=== PATIENT | female | born 1960 | race Caucasian/White ===

== ENCOUNTER 2023-11-08 08:53 | Observation (INO) | payer OTHER ==
--- OUTSIDE RECORDS SUMMARY | 2023-11-08 08:58 | XMS REPORT | Continuity of Care Document ---
Author Name Unknown Address [address] [facility] [address] [place] [address] [facility] Address [address] [facility] [address] [place] [address] Care Team Providers Care Medical Field Representative Name Role Phone Lebron Crenshaw MD Primary Care Physician CAROLINA OLIVARES Attending Clinician LEBRON Santana Attending Clinician Lebron Ramirez MD Attending Clinician [phone] DOMINIQUE ZALDIVAR Attending Clinician Unavailable DOMINIQUE ZALDIVAR Attending Clinician Unavailable Dominique Zaldivar DO Attending Clinician IGNACIA JOHN Attending Clinician Unavailable YUMIKO GOODRICH Attending Clinician Unavailable Doctor Unassigned, Jarales Attending Clinician U KEVIN Hogan Attending Clinician Unavailable JERSON PEACOCK Attending Clinician Unavaila CAROLINA Zuniga Admitting Clinician UnavailLEBRON Gauthier Admitting Clinician Lilly bellamy Payers Payer Name Policy Type Policy Number Effective Date Expirati on Date Source [facility] DUAL COMPLETE HMO [id number] 2019 00:00:00 [facility] [id number] 00:00:00 [facility] DUAL COMPLETE CHOICE [id number] 2017 00:00:00 Problems Condition Name Condition Details Condition Category Status Onset Date Resolution Date Last Treatment Date Treating Clinician Comments Source 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 Added automatic ally from request for surgery [id number] [facility] Mucous cyst of finger Mucous cyst of finger Disease Active 1-16 00:00: 00 Overview: Formattin g of this note might be different from the original. 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 bilateral arms [facility] Allergies, Adverse Reactions, Alerts Allergy Name Allergy Type Status Severity Reaction(s) Onset Date Inactive Date Treating Clinician Comments Source Penicill in Propensi ty to adverse reaction s Active Hives 2015-10 00:00: 00 [facility] PENICILL IN DRUG INGREDI Active Hives 2015-10 0 00:00: 00 [facility] Social History Social Habit Start Date Stop Date Quantity Comments Source Exposure to SARS-CoV-2 (event) Not sure [facility] Gender [facility] use and exposure 2023-06-05 00:00:00 2023-06-05 00:00:00 Smokeless tobacco non-user [facility] Alcohol intake 2023-06-05 00:00:00 2023-06-05 00:00:00 0 /d [facility] History of Social function 2023-05-25 00:00:00 2023-05-25 00:00:00 [facility] History of tobacco use 2011-09-09 00:00:00 Cigarette Smoker [facility] Sex Assigned At 1960 00:00:00 1960 00:00:00 [facility] Smoking Status Start Date Stop Date Source Ex-smoker 2023-06-05 00:00:00 [facility]23[facility] Ordered Medication Name Filled Medication Name Start Date Stop Date Current Medication? Ordering Clinician Indication Dosage Frequency Signature (SIG) Comments Components Source albuterol 90 mcg/actuati on inhaler 06-05 00:00: 00 Yes [id number] 2{puff} Inhale 2 Puffs every 6 (six) hours as needed for Wheezing or Shortness of Breath. [facility] albuterol-i pratropium (COMBIVENT RESPIMAT) 20-100 mcg/actuati on inhaler 06-05 00:00: 00 Yes [id number] 1{puff} Inhale 1 Puff every 6 (six) hours as needed for Wheezing or Shortness of Breath. [facility] budesonide- formoteroL (SYMBICORT) 160-4.5 mcg/actuati on inhaler 06-05 00:00: 00 Yes [id number] 2{puff} Inhale 2 Puffs in the morning and 2 Puffs in the evening. INHALE TWO PUFFS BY MOUTH TWICE A DAY [facility] albuterol 90 mcg/actuati on inhaler 06-05 00:00: 00 Yes [id number] 2{puff} Inhale 2 Puffs every 6 (six) hours as needed for Wheezing or Shortness of Breath. [facility] albuterol-i pratropium (COMBIVENT RESPIMAT) 20-100 mcg/actuati on inhaler 06-05 00:00: 00 Yes [id number] 1{puff} Inhale 1 Puff every 6 (six) hours as needed for Wheezing or Shortness of Breath. [facility] budesonide- formoteroL (SYMBICORT) 160-4.5 mcg/actuati on inhaler 8 00:00: 00 Yes [id number] 2{puff} Inhale 2 Puffs in the morning and 2 Puffs in the evening. INHALE TWO PUFFS BY MOUTH TWICE A DAY [facility] albuterol 90 mcg/actuati on inhaler 06-05 00:00: 00 Yes [id number] 2{puff} Inhale 2 Puffs every 6 (six) hours as needed for Wheezing or Shortness of Breath. [facility] albuterol-i pratropium (COMBIVENT RESPIMAT) 20-100 mcg/actuati on inhaler 06-05 00:00: 00 Yes [id number] 1{puff} Inhale 1 Puff every 6 (six) hours as needed for Wheezing or Shortness of Breath. [facility] budesonide- formoteroL (SYMBICORT) 160-4.5 mcg/actuati on inhaler 06-05 00:00: 00 Yes [id number] 2{puff} Inhale 2 Puffs in the morning and 2 Puffs in the evening. INHALE TWO PUFFS BY MOUTH TWICE A DAY [facility] albuterol 90 mcg/actuati on inhaler 06-05 00:00: 00 Yes [id number] 2{puff} Inhale 2 Puffs every 6 (six) hours as needed for Wheezing or Shortness of Breath. [facility] albuterol-i pratropium (COMBIVENT RESPIMAT) 20-100 mcg/actuati on inhaler 06-05 00:00: 00 Yes [id number] 1{puff} Inhale 1 Puff every 6 (six) hours as needed for Wheezing or Shortness of Breath. [facility] budesonide- formoteroL (SYMBICORT) 160-4.5 mcg/actuati on inhaler 06-05 00:00: 00 Yes [id number] 2{puff} Inhale 2 Puffs in the morning and 2 Puffs in the evening. INHALE TWO PUFFS BY MOUTH TWICE A DAY [facility] albuterol 90 mcg/actuati on inhaler 06-05 00:00: 00 Yes [id number] 2{puff} Inhale 2 Puffs every 6 (six) hours as needed for Wheezing or Shortness of Breath. [facility] albuterol-i pratropium (COMBIVENT RESPIMAT) 20-100 mcg/actuati on inhaler 06-05 00:00: 00 Yes [id number] 1{puff} Inhale 1 Puff every 6 (six) hours as needed for Wheezing or Shortness of Breath. [facility] budesonide- formoteroL (SYMBICORT) 160-4.5 mcg/actuati on inhaler 06-05 00:00: 00 Yes [id number] 2{puff} Inhale 2 Puffs in the morning and 2 Puffs in the evening. INHALE TWO PUFFS BY MOUTH TWICE A DAY [facility] vitamin B-12 (VITAMIN B-12) 1,000 mcg tablet 05-25 10:12: 41 Yes 1000ug Take 1 tablet by mouth in the morning. [facility] vitamin B-12 (VITAMIN B-12) 1,000 mcg tablet 05-25 10:12: 41 Yes 1000ug Take 1 tablet by mouth in the morning. [facility] vitamin B-12 (VITAMIN B-12) 1,000 mcg tablet 05-25 10:12: 41 Yes 1000ug Take 1 tablet by mouth in the morning. [facility] vitamin B-12 (VITAMIN B-12) 1,000 mcg tablet 05-25 10:12: 41 Yes 1000ug Take 1 tablet by mouth in the morning. [facility] vitamin B-12 (VITAMIN B-12) 1,000 mcg tablet 05-25 10:12: 41 Yes 1000ug Take 1 tablet by mouth in the morning. [facility] vitamin B-12 (VITAMIN B-12) 1,000 mcg tablet 05-25 10:12: 41 Yes 1000ug Take 1 tablet by mouth in the morning. [facility] vitamin B-12 (VITAMIN B-12) 1,000 mcg tablet 05-25 10:12: 41 Yes 1000ug Take 1 tablet by mouth in the morning. [facility] albuterol 90 mcg/actuati on inhaler 05-25 00:00: 00 Yes [id number] 2{puff} Inhale 2 Puffs every 6 (six) hours as needed for Wheezing or Shortness of Breath. [facility] albuterol-i pratropium (COMBIVENT RESPIMAT) 20-100 mcg/actuati on inhaler 05-25 00:00: 00 Yes [id number] 1{puff} Inhale 1 Puff every 6 (six) hours. [facility] atorvastati n 80 mg tablet 05-25 00:00: 00 Yes [id number] 80mg Take 1 tablet by mouth in the morning. [facility] budesonide- formoteroL (SYMBICORT) 160-4.5 mcg/actuati on inhaler 05-25 00:00: 00 Yes [id number] INHALE TWO PUFFS BY MOUTH TWICE A DAY [facility] DULoxetine 60 mg capsule 05-25 00:00: 00 Yes [id number] TAKE ONE CAPSULE BY MOUTH EVERY DAY. [facility] gabapentin 300 mg capsule 05-25 00:00: 00 Yes [id number] TAKE 1 CAPSULE BY MOUTH 3 TIMES DAILY [facility] lisinopriL- hydrochloro thiazide 20-12.5 mg per tablet 05-25 00:00: 00 Yes [id number] 1{tbl} Take 1 tablet by mouth in the morning. [facility] omeprazole 20 mg capsule 05-25 00:00: 00 Yes [id number] 20mg Take 1 capsule by mouth in the morning. [facility] oxyBUTYnin chloride 5 mg tablet 05-25 00:00: 00 Yes [id number] 5mg Take 1 tablet by mouth in the morning and 1 tablet in the evening. [facility] traZODone 150 mg tablet 05-25 00:00: 00 Yes [id number] TAKE ONE-HALF TABLET BY MOUTH AT BEDTIME [facility] albuterol 90 mcg/actuati on inhaler 05-25 00:00: 00 Yes [id number] 2{puff} Inhale 2 Puffs every 6 (six) hours as needed for Wheezing or Shortness of Breath. [facility] albuterol-i pratropium (COMBIVENT RESPIMAT) 20-100 mcg/actuati on inhaler 05-25 00:00: 00 Yes [id number] 1{puff} Inhale 1 Puff every 6 (six) hours. [facility] atorvastati n 80 mg tablet 05-25 00:00: 00 Yes [id number] 80mg Take 1 tablet by mouth in the morning. [facility] budesonide- formoteroL (SYMBICORT) 160-4.5 mcg/actuati on inhaler 05-25 00:00: 00 Yes [id number] INHALE TWO PUFFS BY MOUTH TWICE A DAY [facility] DULoxetine 60 mg capsule 05-25 00:00: 00 Yes [id number] TAKE ONE CAPSULE BY MOUTH EVERY DAY. [facility] gabapentin 300 mg capsule 05-25 00:00: 00 Yes [id number] TAKE 1 CAPSULE BY MOUTH 3 TIMES DAILY [facility] lisinopriL- hydrochloro thiazide 20-12.5 mg per tablet 05-25 00:00: 00 Yes [id number] 1{tbl} Take 1 tablet by mouth in the morning. [facility] omeprazole 20 mg capsule 05-25 00:00: 00 Yes [id number] 20mg Take 1 capsule by mouth in the morning. [facility] oxyBUTYnin chloride 5 mg tablet 05-25 00:00: 00 Yes [id number] 5mg Take 1 tablet by mouth in the morning and 1 tablet in the evening. [facility] traZODone 150 mg tablet 05-25 00:00: 00 Yes [id number] TAKE ONE-HALF TABLET BY MOUTH AT BEDTIME [facility] atorvastati n 80 mg tablet 05-25 00:00: 00 Yes [id number] 80mg Take 1 tablet by mouth in the morning. [facility] DULoxetine 60 mg capsule 05-25 00:00: 00 Yes [id number] TAKE ONE CAPSULE BY MOUTH EVERY DAY. [facility] gabapentin 300 mg capsule 05-25 00:00: 00 Yes [id number] TAKE 1 CAPSULE BY MOUTH 3 TIMES DAILY [facility] lisinopriL- hydrochloro thiazide 20-12.5 mg per tablet 05-25 00:00: 00 Yes [id number] 1{tbl} Take 1 tablet by mouth in the morning. [facility] omeprazole 20 mg capsule 05-25 00:00: 00 Yes [id number] 20mg Take 1 capsule by mouth in the morning. [facility] oxyBUTYnin chloride 5 mg tablet 05-25 00:00: 00 Yes [id number] 5mg Take 1 tablet by mouth in the morning and 1 tablet in the evening. [facility] traZODone 150 mg tablet 05-25 00:00: 00 Yes [id number] TAKE ONE-HALF TABLET BY MOUTH AT BEDTIME [facility] atorvastati n 80 mg tablet 05-25 00:00: 00 Yes [id number] 80mg Take 1 tablet by mouth in the morning. [facility] DULoxetine 60 mg capsule 05-25 00:00: 00 Yes [id number] TAKE ONE CAPSULE BY MOUTH EVERY DAY. [facility] gabapentin 300 mg capsule 05-25 00:00: 00 Yes [id number] TAKE 1 CAPSULE BY MOUTH 3 TIMES DAILY [facility] lisinopriL- hydrochloro thiazide 20-12.5 mg per tablet 05-25 00:00: 00 Yes [id number] 1{tbl} Take 1 tablet by mouth in the morning. [facility] omeprazole 20 mg capsule 05-25 00:00: 00 Yes [id number] 20mg Take 1 capsule by mouth in the morning. [facility] oxyBUTYnin chloride 5 mg tablet 05-25 00:00: 00 Yes [id number] 5mg Take 1 tablet by mouth in the morning and 1 tablet in the evening. [facility] traZODone 150 mg tablet 05-25 00:00: 00 Yes [id number] TAKE ONE-HALF TABLET BY MOUTH AT BEDTIME [facility] atorvastati n 80 mg tablet 05-25 00:00: 00 Yes [id number] 80mg Take 1 tablet by mouth in the morning. [facility] DULoxetine 60 mg capsule 05-25 00:00: 00 Yes [id number] TAKE ONE CAPSULE BY MOUTH EVERY DAY. [facility] gabapentin 300 mg capsule 05-25 00:00: 00 Yes [id number] TAKE 1 CAPSULE BY MOUTH 3 TIMES DAILY [facility] lisinopriL- hydrochloro thiazide 20-12.5 mg per tablet 05-25 00:00: 00 Yes [id number] 1{tbl} Take 1 tablet by mouth in the morning. [facility] omeprazole 20 mg capsule 05-25 00:00: 00 Yes [id number] 20mg Take 1 capsule by mouth in the morning. [facility] oxyBUTYnin chloride 5 mg tablet 05-25 00:00: 00 Yes [id number] 5mg Take 1 tablet by mouth in the morning and 1 tablet in the evening. [facility] traZODone 150 mg tablet 05-25 00:00: 00 Yes [id number] TAKE ONE-HALF TABLET BY MOUTH AT BEDTIME [facility] atorvastati n 80 mg tablet 05-25 00:00: 00 Yes [id number] 80mg Take 1 tablet by mouth in the morning. [facility] DULoxetine 60 mg capsule 05-25 00:00: 00 Yes [id number] TAKE ONE CAPSULE BY MOUTH EVERY DAY. [facility] gabapentin 300 mg capsule 05-25 00:00: 00 Yes [id number] TAKE 1 CAPSULE BY MOUTH 3 TIMES DAILY [facility] lisinopriL- hydrochloro thiazide 20-12.5 mg per tablet 05-25 00:00: 00 Yes [id number] 1{tbl} Take 1 tablet by mouth in the morning. [facility] omeprazole 20 mg capsule 05-25 00:00: 00 Yes [id number] 20mg Take 1 capsule by mouth in the morning. [facility] oxyBUTYnin chloride 5 mg tablet 05-25 00:00: 00 Yes [id number] 5mg Take 1 tablet by mouth in the morning and 1 tablet in the evening. [facility] traZODone 150 mg tablet 05-25 00:00: 00 Yes [id number] TAKE ONE-HALF TABLET BY MOUTH AT BEDTIME [facility] atorvastati n 80 mg tablet 05-25 00:00: 00 Yes [id number] 80mg Take 1 tablet by mouth in the morning. [facility] DULoxetine 60 mg capsule 05-25 00:00: 00 Yes [id number] TAKE ONE CAPSULE BY MOUTH EVERY DAY. [facility] gabapentin 300 mg capsule 05-25 00:00: 00 Yes [id number] TAKE 1 CAPSULE BY MOUTH 3 TIMES DAILY [facility] lisinopriL- hydrochloro thiazide 20-12.5 mg per tablet 05-25 00:00: 00 Yes [id number] 1{tbl} Take 1 tablet by mouth in the morning. [facility] omeprazole 20 mg capsule 05-25 00:00: 00 Yes [id number] 20mg Take 1 capsule by mouth in the morning. [facility] oxyBUTYnin chloride 5 mg tablet 05-25 00:00: 00 Yes [id number] 5mg Take 1 tablet by mouth in the morning and 1 tablet in the evening. [facility] traZODone 150 mg tablet 05-25 00:00: 00 Yes [id number] TAKE ONE-HALF TABLET BY MOUTH AT BEDTIME [facility] albuterol 90 mcg/actuati on inhaler 05-25 00:00: 00 06-05 00:00 :00 No [id number] 2{puff} Inhale 2 Puffs every 6 (six) hours as needed for Wheezing or Shortness of Breath. [facility] albuterol-i pratropium (COMBIVENT RESPIMAT) 20-100 mcg/actuati on inhaler 05-25 00:00: 00 06-05 00:00 :00 No [id number] 1{puff} Inhale 1 Puff every 6 (six) hours. [facility] budesonide- formoteroL (SYMBICORT) 160-4.5 mcg/actuati on inhaler 05-25 00:00: 00 06-05 00:00 :00 No [id number] INHALE TWO PUFFS BY MOUTH TWICE A DAY [facility] albuterol 90 mcg/actuati on inhaler 05-25 00:00: 00 06-05 00:00 :00 No [id number] 2{puff} Inhale 2 Puffs every 6 (six) hours as needed for Wheezing or Shortness of Breath. [facility] albuterol-i pratropium (COMBIVENT RESPIMAT) 20-100 mcg/actuati on inhaler 05-25 00:00: 00 06-05 00:00 :00 No [id number] 1{puff} Inhale 1 Puff every 6 (six) hours. [facility] budesonide- formoteroL (SYMBICORT) 160-4.5 mcg/actuati on inhaler 05-25 00:00: 00 06-05 00:00 :00 No [id number] INHALE TWO PUFFS BY MOUTH TWICE A DAY [facility] albuterol 90 mcg/actuati on inhaler 04-27 00:00: 00 Yes [id number] 2{puff} Inhale 2 Puffs every 6 (six) hours as needed for Wheezing or Shortness of Breath. [facility] budesonide- formoteroL (SYMBICORT) 160-4.5 mcg/actuati on inhaler 04-27 00:00: 00 Yes [id number] INHALE TWO PUFFS BY MOUTH TWICE A DAY [facility] albuterol-i pratropium (COMBIVENT RESPIMAT) 20-100 mcg/actuati on inhaler 04-27 00:00: 00 Yes [id number] 1{puff} Inhale 1 Puff every 6 (six) hours. [facility] albuterol 90 mcg/actuati on inhaler 04-27 00:00: 00 05-25 00:00 :00 No [id number] 2{puff} Inhale 2 Puffs every 6 (six) hours as needed for Wheezing or Shortness of Breath. [facility] budesonide- formoteroL (SYMBICORT) 160-4.5 mcg/actuati on inhaler 04-27 00:00: 00 05-25 00:00 :00 No [id number] INHALE TWO PUFFS BY MOUTH TWICE A DAY [facility] albuterol-i pratropium (COMBIVENT RESPIMAT) 20-100 mcg/actuati on inhaler 04-27 00:00: 00 05-25 00:00 :00 No [id number] 1{puff} Inhale 1 Puff every 6 (six) hours. [facility] albuterol 90 mcg/actuati on inhaler 04-27 00:00: 00 05-25 00:00 :00 No [id number] 2{puff} Inhale 2 Puffs every 6 (six) hours as needed for Wheezing or Shortness of Breath. [facility] budesonide- formoteroL (SYMBICORT) 160-4.5 mcg/actuati on inhaler 04-27 00:00: 00 05-25 00:00 :00 No [id number] INHALE TWO PUFFS BY MOUTH TWICE A DAY [facility] albuterol-i pratropium (COMBIVENT RESPIMAT) 20-100 mcg/actuati on inhaler 04-27 00:00: 00 05-25 00:00 :00 No [id number] 1{puff} Inhale 1 Puff every 6 (six) hours. [facility] atorvastati n 80 mg tablet 0 3-15 00:00: 00 Yes [id number] TAKE ONE TABLET BY MOUTH DAILY [facility] atorvastati n 80 mg tablet 0 15 00:00: 00 Yes [id number] TAKE ONE TABLET BY MOUTH DAILY [facility] atorvastati n 80 mg tablet 0 15 00:00: 00 Yes [id number] TAKE ONE TABLET BY MOUTH DAILY [facility] atorvastati n 80 mg tablet 0 315 00:00: 00 Yes [id number] TAKE ONE TABLET BY MOUTH DAILY [facility] atorvastati n 80 mg tablet 0 -15 00:00: 00 05-25 00:00 :00 No [id number] TAKE ONE TABLET BY MOUTH DAILY [facility] atorvastati n 80 mg tablet 0 15 00:00: 00 05-25 00:00 :00 No [id number] TAKE ONE TABLET BY MOUTH DAILY [facility] LISINOPRIL- HYDROCHLORO THIAZIDE 20-12.5 mg per tablet 0 -10 00:00: 00 Yes [id number] TAKE ONE TABLET BY MOUTH DAILY [facility] LISINOPRIL- HYDROCHLORO THIAZIDE 20-12.5 mg per tablet 0 3-10 00:00: 00 Yes [id number] TAKE ONE TABLET BY MOUTH DAILY [facility] LISINOPRIL- HYDROCHLORO THIAZIDE 20-12.5 mg per tablet 0 3-10 00:00: 00 Yes [id number] TAKE ONE TABLET BY MOUTH DAILY [facility] LISINOPRIL- HYDROCHLORO THIAZIDE 20-12.5 mg per tablet 3-10 00:00: 00 Yes [id number] TAKE ONE TABLET BY MOUTH DAILY [facility] LISINOPRIL- HYDROCHLORO THIAZIDE 20-12.5 mg per tablet 3- 00:00: 00 Yes [id number] TAKE ONE TABLET BY MOUTH DAILY [facility] LISINOPRIL- HYDROCHLORO THIAZIDE 20-12.5 mg per tablet 3-10 00:00: 00 05-25 00:00 :00 No [id number] TAKE ONE TABLET BY MOUTH DAILY [facility] LISINOPRIL- HYDROCHLORO THIAZIDE 20-12.5 mg per tablet - 00:00: 00 05-25 00:00 :00 No [id number] TAKE ONE TABLET BY MOUTH DAILY [facility] albuterol 90 mcg/actuati on inhaler 12-14 00:00: 00 Yes [id number] 2{puff} Inhale 2 Puffs every 6 (six) hours as needed for Wheezing or Shortness of Breath. [facility] budesonide- formoteroL (SYMBICORT) 160-4.5 mcg/actuati on inhaler 12-14 00:00: 00 Yes [id number] INHALE TWO PUFFS BY MOUTH TWICE A DAY [facility] albuterol 90 mcg/actuati on inhaler 12-14 00:00: 00 Yes [id number] 2{puff} Inhale 2 Puffs every 6 (six) hours as needed for Wheezing or Shortness of Breath. [facility] budesonide- formoteroL (SYMBICORT) 160-4.5 mcg/actuati on inhaler 12-14 00:00: 00 Yes [id number] INHALE TWO PUFFS BY MOUTH TWICE A DAY [facility] COMBIVENT RESPIMAT 20-100 mcg/actuati on inhaler 12-14 00:00: 00 Yes [id number] INHALE 1 PUFF(S) INTO LUNGS 4 TIMES DAILY [facility] albuterol 90 mcg/actuati on inhaler 2-15 00:00: 00 Yes [id number] 2{puff} Inhale 2 Puffs every 6 (six) hours as needed for Wheezing or Shortness of Breath. [facility] budesonide- formoteroL (SYMBICORT) 160-4.5 mcg/actuati on inhaler 2-15 00:00: 00 Yes [id number] INHALE TWO PUFFS BY MOUTH TWICE A DAY [facility] albuterol 90 mcg/actuati on inhaler 2-15 00:00: 00 Yes [id number] 2{puff} Inhale 2 Puffs every 6 (six) hours as needed for Wheezing or Shortness of Breath. [facility] budesonide- formoteroL (SYMBICORT) 160-4.5 mcg/actuati on inhaler 2-15 00:00: 00 Yes [id number] INHALE TWO PUFFS BY MOUTH TWICE A DAY [facility] COMBIVENT RESPIMAT 20-100 mcg/actuati on inhaler 2-15 00:00: 00 Yes [id number] INHALE 1 PUFF(S) INTO LUNGS 4 TIMES DAILY [facility] albuterol 90 mcg/actuati on inhaler 2-15 00:00: 00 Yes [id number] 2{puff} Inhale 2 Puffs every 6 (six) hours as needed for Wheezing or Shortness of Breath. [facility] budesonide- formoteroL (SYMBICORT) 160-4.5 mcg/actuati on inhaler 2-15 00:00: 00 Yes [id number] INHALE TWO PUFFS BY MOUTH TWICE A DAY [facility] COMBIVENT RESPIMAT 20-100 mcg/actuati on inhaler 2-15 00:00: 00 Yes [id number] INHALE 1 PUFF(S) INTO LUNGS 4 TIMES DAILY [facility] albuterol 90 mcg/actuati on inhaler 2-15 00:00: 00 Yes [id number] 2{puff} Inhale 2 Puffs every 6 (six) hours as needed for Wheezing or Shortness of Breath. [facility] budesonide- formoteroL (SYMBICORT) 160-4.5 mcg/actuati on inhaler 2- 00:00: 00 Yes [id number] INHALE TWO PUFFS BY MOUTH TWICE A DAY [facility] COMBIVENT RESPIMAT 20-100 mcg/actuati on inhaler 2 00:00: 00 Yes [id number] INHALE 1 PUFF(S) INTO LUNGS 4 TIMES DAILY [facility] albuterol 90 mcg/actuati on inhaler 12-14 00:00: 00 04-27 00:00 :00 No [id number] 2{puff} Inhale 2 Puffs every 6 (six) hours as needed for Wheezing or Shortness of Breath. [facility] budesonide- formoteroL (SYMBICORT) 160-4.5 mcg/actuati on inhaler 12-14 00:00: 00 04-27 00:00 :00 No [id number] INHALE TWO PUFFS BY MOUTH TWICE A DAY [facility] COMBIVENT RESPIMAT 20-100 mcg/actuati on inhaler 12-14 00:00: 00 04-27 00:00 :00 No [id number] INHALE 1 PUFF(S) INTO LUNGS 4 TIMES DAILY [facility] albuterol-i pratropium (COMBIVENT RESPIMAT) 20-100 mcg/actuati on inhaler 2021-10 00:00: 00 Yes [id number] INHALE ONE INHALATION BY MOUTH FOUR TIMES A DAY [facility] budesonide- formoteroL (SYMBICORT) 160-4.5 mcg/actuati on inhaler 2021-10 00:00: 00 Yes [id number] INHALE TWO PUFFS BY MOUTH TWICE A DAY [facility] albuterol-i pratropium (COMBIVENT RESPIMAT) 20-100 mcg/actuati on inhaler 2021-10 00:00: 00 Yes [id number] INHALE ONE INHALATION BY MOUTH FOUR TIMES A DAY [facility] budesonide- formoteroL (SYMBICORT) 160-4.5 mcg/actuati on inhaler 2021-10 00:00: 00 Yes [id number] INHALE TWO PUFFS BY MOUTH TWICE A DAY [facility] albuterol-i pratropium (COMBIVENT RESPIMAT) 20-100 mcg/actuati on inhaler 2021-10 00:00: 00 Yes [id number] INHALE ONE INHALATION BY MOUTH FOUR TIMES A DAY [facility] budesonide- formoteroL (SYMBICORT) 160-4.5 mcg/actuati on inhaler 2021-10 00:00: 00 Yes [id number] INHALE TWO PUFFS BY MOUTH TWICE A DAY [facility] albuterol-i pratropium (COMBIVENT RESPIMAT) 20-100 mcg/actuati on inhaler 2021-10 00:00: 00 Yes [id number] INHALE ONE INHALATION BY MOUTH FOUR TIMES A DAY [facility] budesonide- formoteroL (SYMBICORT) 160-4.5 mcg/actuati on inhaler 2021-10 00:00: 00 12-14 00:00 :00 No [id number] INHALE TWO PUFFS BY MOUTH TWICE A DAY [facility] albuterol-i pratropium (COMBIVENT RESPIMAT) 20-100 mcg/actuati on inhaler 2021-10 00:00: 00 12-14 00:00 :00 No [id number] INHALE ONE INHALATION BY MOUTH FOUR TIMES A DAY [facility] ALBUTEROL 90 mcg/actuati on inhaler 2021-10 00:00: 00 Yes [id number] INHALE TWO PUFFS BY MOUTH EVERY 6 HOURS NEEDED FOR SHORTNESS OF BREATH OR WHEEZING [facility] ALBUTEROL 90 mcg/actuati on inhaler 2021-10 00:00: 00 Yes [id number] INHALE TWO PUFFS BY MOUTH EVERY 6 HOURS NEEDED FOR SHORTNESS OF BREATH OR WHEEZING [facility] ALBUTEROL 90 mcg/actuati on inhaler 2021-10 00:00: 00 Yes [id number] INHALE TWO PUFFS BY MOUTH EVERY 6 HOURS NEEDED FOR SHORTNESS OF BREATH OR WHEEZING [facility] ALBUTEROL 90 mcg/actuati on inhaler 2021-10 00:00: 00 Yes [id number] INHALE TWO PUFFS BY MOUTH EVERY 6 HOURS NEEDED FOR SHORTNESS OF BREATH OR WHEEZING [facility] ALBUTEROL 90 mcg/actuati on inhaler 2021-10 00:00: 00 12-14 00:00 :00 No [id number] INHALE TWO PUFFS BY MOUTH EVERY 6 HOURS NEEDED FOR SHORTNESS OF BREATH OR WHEEZING [facility] atorvastati n 80 mg tablet 2021-10 00:00: 00 Yes [id number] TAKE ONE TABLET BY MOUTH DAILY [facility] atorvastati n 80 mg tablet 2021-10 00:00: 00 Yes [id number] TAKE ONE TABLET BY MOUTH DAILY [facility] atorvastati n 80 mg tablet 2021-10 00:00: 00 Yes [id number] TAKE ONE TABLET BY MOUTH DAILY [facility] atorvastati n 80 mg tablet 2021-10 00:00: 00 Yes [id number] TAKE ONE TABLET BY MOUTH DAILY [facility] atorvastati n 80 mg tablet 2021-10 00:00: 00 Yes [id number] TAKE ONE TABLET BY MOUTH DAILY [facility] atorvastati n 80 mg tablet 2021-10 00:00: 00 Yes [id number] TAKE ONE TABLET BY MOUTH DAILY [facility] atorvastati n 80 mg tablet 2021-10 00:00: 00 Yes [id number] TAKE ONE TABLET BY MOUTH DAILY [facility] atorvastati n 80 mg tablet 2021-10 00:00: 00 Yes [id number] TAKE ONE TABLET BY MOUTH DAILY [facility] atorvastati n 80 mg tablet 2021-10 00:00: 00 Yes [id number] TAKE ONE TABLET BY MOUTH DAILY [facility] atorvastati n 80 mg tablet 2021-10 00:00: 00 01-11 00:00 :00 No [id number] TAKE ONE TABLET BY MOUTH DAILY [facility] traZODone 150 mg tablet 2021-10 00:00: 00 Yes [id number] TAKE ONE-HALF TABLET BY MOUTH AT BEDTIME [facility] oxybutynin chloride 5 mg tablet 2021-10 00:00: 00 Yes [id number] 5mg Take 1 tablet by mouth in the morning and 1 tablet in the evening. [facility] omeprazole 20 mg capsule 2021-10 00:00: 00 Yes [id number] 20mg Take 1 capsule by mouth in the morning. [facility] lisinopriL- hydrochloro thiazide 20-12.5 mg per tablet 2021-10 00:00: 00 Yes [id number] 1{tbl} Take 1 tablet by mouth in the morning. [facility] gabapentin 300 mg capsule 2021-10 00:00: 00 Yes [id number] TAKE 1 CAPSULE BY MOUTH 3 TIMES DAILY [facility] DULoxetine 60 mg capsule 2021-10 00:00: 00 Yes [id number] TAKE ONE CAPSULE BY MOUTH EVERY DAY. [facility] traZODone 150 mg tablet 2021-10 00:00: 00 Yes [id number] TAKE ONE-HALF TABLET BY MOUTH AT BEDTIME [facility] oxybutynin chloride 5 mg tablet 2021-10 00:00: 00 Yes [id number] 5mg Take 1 tablet by mouth in the morning and 1 tablet in the evening. [facility] omeprazole 20 mg capsule 2021-10 00:00: 00 Yes [id number] 20mg Take 1 capsule by mouth in the morning. [facility] lisinopriL- hydrochloro thiazide 20-12.5 mg per tablet 2021-10 00:00: 00 Yes [id number] 1{tbl} Take 1 tablet by mouth in the morning. [facility] gabapentin 300 mg capsule 2021-10 0 00:00: 00 Yes [id number] TAKE 1 CAPSULE BY MOUTH 3 TIMES DAILY [facility] DULoxetine 60 mg capsule 2021-10 00:00: 00 Yes [id number] TAKE ONE CAPSULE BY MOUTH EVERY DAY. [facility] traZODone 150 mg tablet 2021-10 0 00:00: 00 Yes [id number] TAKE ONE-HALF TABLET BY MOUTH AT BEDTIME [facility] oxybutynin chloride 5 mg tablet 2021-10 0 00:00: 00 Yes [id number] 5mg Take 1 tablet by mouth in the morning and 1 tablet in the evening. [facility] omeprazole 20 mg capsule 2021-10 00:00: 00 Yes [id number] 20mg Take 1 capsule by mouth in the morning. [facility] lisinopriL- hydrochloro thiazide 20-12.5 mg per tablet 2021-10 00:00: 00 Yes [id number] 1{tbl} Take 1 tablet by mouth in the morning. [facility] gabapentin 300 mg capsule 2021-10 00:00: 00 Yes [id number] TAKE 1 CAPSULE BY MOUTH 3 TIMES DAILY [facility] DULoxetine 60 mg capsule 2021-10 00:00: 00 Yes [id number] TAKE ONE CAPSULE BY MOUTH EVERY DAY. [facility] traZODone 150 mg tablet 2021-10 00:00: 00 Yes [id number] TAKE ONE-HALF TABLET BY MOUTH AT BEDTIME [facility] oxybutynin chloride 5 mg tablet 2021-10 0 00:00: 00 Yes [id number] 5mg Take 1 tablet by mouth in the morning and 1 tablet in the evening. [facility] omeprazole 20 mg capsule 2021-10 00:00: 00 Yes [id number] 20mg Take 1 capsule by mouth in the morning. [facility] lisinopriL- hydrochloro thiazide 20-12.5 mg per tablet 2021-10 0 00:00: 00 Yes [id number] 1{tbl} Take 1 tablet by mouth in the morning. [facility] gabapentin 300 mg capsule 2021-10 0 00:00: 00 Yes [id number] TAKE 1 CAPSULE BY MOUTH 3 TIMES DAILY [facility] DULoxetine 60 mg capsule 2021-10 00:00: 00 Yes [id number] TAKE ONE CAPSULE BY MOUTH EVERY DAY. [facility] traZODone 150 mg tablet 2021-10 00:00: 00 Yes [id number] TAKE ONE-HALF TABLET BY MOUTH AT BEDTIME [facility] oxybutynin chloride 5 mg tablet 2021-10 00:00: 00 Yes [id number] 5mg Take 1 tablet by mouth in the morning and 1 tablet in the evening. [facility] omeprazole 20 mg capsule 2021-10 00:00: 00 Yes [id number] 20mg Take 1 capsule by mouth in the morning. [facility] lisinopriL- hydrochloro thiazide 20-12.5 mg per tablet 2021-10 00:00: 00 Yes [id number] 1{tbl} Take 1 tablet by mouth in the morning. [facility] gabapentin 300 mg capsule 2021-10 00:00: 00 Yes [id number] TAKE 1 CAPSULE BY MOUTH 3 TIMES DAILY [facility] DULoxetine 60 mg capsule 2021-10 00:00: 00 Yes [id number] TAKE ONE CAPSULE BY MOUTH EVERY DAY. [facility] traZODone 150 mg tablet 2021-10 00:00: 00 Yes [id number] TAKE ONE-HALF TABLET BY MOUTH AT BEDTIME [facility] oxybutynin chloride 5 mg tablet 2021-10 00:00: 00 Yes [id number] 5mg Take 1 tablet by mouth in the morning and 1 tablet in the evening. [facility] omeprazole 20 mg capsule 2021-10 00:00: 00 Yes [id number] 20mg Take 1 capsule by mouth in the morning. [facility] lisinopriL- hydrochloro thiazide 20-12.5 mg per tablet 2021-10 00:00: 00 Yes [id number] 1{tbl} Take 1 tablet by mouth in the morning. [facility] gabapentin 300 mg capsule 2021-10 00:00: 00 Yes [id number] TAKE 1 CAPSULE BY MOUTH 3 TIMES DAILY [facility] DULoxetine 60 mg capsule 2021-10 00:00: 00 Yes [id number] TAKE ONE CAPSULE BY MOUTH EVERY DAY. [facility] traZODone 150 mg tablet 2021-10 00:00: 00 Yes [id number] TAKE ONE-HALF TABLET BY MOUTH AT BEDTIME [facility] oxybutynin chloride 5 mg tablet 2021-10 00:00: 00 Yes [id number] 5mg Take 1 tablet by mouth in the morning and 1 tablet in the evening. [facility] omeprazole 20 mg capsule 2021-10 00:00: 00 Yes [id number] 20mg Take 1 capsule by mouth in the morning. [facility] lisinopriL- hydrochloro thiazide 20-12.5 mg per tablet 2021-10 00:00: 00 Yes [id number] 1{tbl} Take 1 tablet by mouth in the morning. [facility] gabapentin 300 mg capsule 2021-10 00:00: 00 Yes [id number] TAKE 1 CAPSULE BY MOUTH 3 TIMES DAILY [facility] DULoxetine 60 mg capsule 2021-10 00:00: 00 Yes [id number] TAKE ONE CAPSULE BY MOUTH EVERY DAY. [facility] traZODone 150 mg tablet 2021-10 00:00: 00 Yes [id number] TAKE ONE-HALF TABLET BY MOUTH AT BEDTIME [facility] oxybutynin chloride 5 mg tablet 2021-10 00:00: 00 Yes [id number] 5mg Take 1 tablet by mouth in the morning and 1 tablet in the evening. [facility] omeprazole 20 mg capsule 2021-10 00:00: 00 Yes [id number] 20mg Take 1 capsule by mouth in the morning. [facility] lisinopriL- hydrochloro thiazide 20-12.5 mg per tablet 2021-10 00:00: 00 Yes [id number] 1{tbl} Take 1 tablet by mouth in the morning. [facility] gabapentin 300 mg capsule 2021-10 00:00: 00 Yes [id number] TAKE 1 CAPSULE BY MOUTH 3 TIMES DAILY [facility] DULoxetine 60 mg capsule 2021-10 00:00: 00 Yes [id number] TAKE ONE CAPSULE BY MOUTH EVERY DAY. [facility] traZODone 150 mg tablet 2021-10 00:00: 00 Yes [id number] TAKE ONE-HALF TABLET BY MOUTH AT BEDTIME [facility] oxybutynin chloride 5 mg tablet 2021-10 00:00: 00 Yes [id number] 5mg Take 1 tablet by mouth in the morning and 1 tablet in the evening. [facility] omeprazole 20 mg capsule 2021-10 00:00: 00 Yes [id number] 20mg Take 1 capsule by mouth in the morning. [facility] lisinopriL- hydrochloro thiazide 20-12.5 mg per tablet 2021-10 00:00: 00 Yes [id number] 1{tbl} Take 1 tablet by mouth in the morning. [facility] gabapentin 300 mg capsule 2021-10 00:00: 00 Yes [id number] TAKE 1 CAPSULE BY MOUTH 3 TIMES DAILY [facility] DULoxetine 60 mg capsule 2021-10 00:00: 00 Yes [id number] TAKE ONE CAPSULE BY MOUTH EVERY DAY. [facility] traZODone 150 mg tablet 2021-10 00:00: 00 Yes [id number] TAKE ONE-HALF TABLET BY MOUTH AT BEDTIME [facility] oxybutynin chloride 5 mg tablet 2021-10 00:00: 00 Yes [id number] 5mg Take 1 tablet by mouth in the morning and 1 tablet in the evening. [facility] omeprazole 20 mg capsule 2021-10 00:00: 00 Yes [id number] 20mg Take 1 capsule by mouth in the morning. [facility] lisinopriL- hydrochloro thiazide 20-12.5 mg per tablet 2021-10 00:00: 00 Yes [id number] 1{tbl} Take 1 tablet by mouth in the morning. [facility] gabapentin 300 mg capsule 2021-10 00:00: 00 Yes [id number] TAKE 1 CAPSULE BY MOUTH 3 TIMES DAILY [facility] DULoxetine 60 mg capsule 2021-10 00:00: 00 Yes [id number] TAKE ONE CAPSULE BY MOUTH EVERY DAY. [facility] traZODone 150 mg tablet 2021-10 00:00: 00 Yes [id number] TAKE ONE-HALF TABLET BY MOUTH AT BEDTIME [facility] oxybutynin chloride 5 mg tablet 2021-10 00:00: 00 Yes [id number] 5mg Take 1 tablet by mouth in the morning and 1 tablet in the evening. [facility] omeprazole 20 mg capsule 2021-10 00:00: 00 Yes [id number] 20mg Take 1 capsule by mouth in the morning. [facility] lisinopriL- hydrochloro thiazide 20-12.5 mg per tablet 2021-10 00:00: 00 Yes [id number] 1{tbl} Take 1 tablet by mouth in the morning. [facility] gabapentin 300 mg capsule 2021-10 00:00: 00 Yes [id number] TAKE 1 CAPSULE BY MOUTH 3 TIMES DAILY [facility] DULoxetine 60 mg capsule 2021-10 00:00: 00 Yes [id number] TAKE ONE CAPSULE BY MOUTH EVERY DAY. [facility] traZODone 150 mg tablet 2021-10 00:00: 00 Yes [id number] TAKE ONE-HALF TABLET BY MOUTH AT BEDTIME [facility] oxybutynin chloride 5 mg tablet 2021-10 00:00: 00 Yes [id number] 5mg Take 1 tablet by mouth in the morning and 1 tablet in the evening. [facility] omeprazole 20 mg capsule 2021-10 0-13 00:00: 00 Yes [id number] 20mg Take 1 capsule by mouth in the morning. [facility] gabapentin 300 mg capsule 2021-10 0- 00:00: 00 Yes [id number] TAKE 1 CAPSULE BY MOUTH 3 TIMES DAILY [facility] DULoxetine 60 mg capsule 2021-10 0- 00:00: 00 Yes [id number] TAKE ONE CAPSULE BY MOUTH EVERY DAY. [facility] traZODone 150 mg tablet 2021-10 0- 00:00: 00 Yes [id number] TAKE ONE-HALF TABLET BY MOUTH AT BEDTIME [facility] oxybutynin chloride 5 mg tablet 2021-10 00:00: 00 Yes [id number] 5mg Take 1 tablet by mouth in the morning and 1 tablet in the evening. [facility] omeprazole 20 mg capsule 2021-10 0 00:00: 00 Yes [id number] 20mg Take 1 capsule by mouth in the morning. [facility] gabapentin 300 mg capsule 2021-10 0 00:00: 00 Yes [id number] TAKE 1 CAPSULE BY MOUTH 3 TIMES DAILY [facility] DULoxetine 60 mg capsule 2021-10 0 00:00: 00 Yes [id number] TAKE ONE CAPSULE BY MOUTH EVERY DAY. [facility] traZODone 150 mg tablet 2021-10 0 00:00: 00 Yes [id number] TAKE ONE-HALF TABLET BY MOUTH AT BEDTIME [facility] oxybutynin chloride 5 mg tablet 2021-10 0 00:00: 00 Yes [id number] 5mg Take 1 tablet by mouth in the morning and 1 tablet in the evening. [facility] omeprazole 20 mg capsule 2021-10 0 00:00: 00 Yes [id number] 20mg Take 1 capsule by mouth in the morning. [facility] gabapentin 300 mg capsule 2021-10 0- 00:00: 00 Yes [id number] TAKE 1 CAPSULE BY MOUTH 3 TIMES DAILY [facility] DULoxetine 60 mg capsule 2021-10 0- 00:00: 00 Yes [id number] TAKE ONE CAPSULE BY MOUTH EVERY DAY. [facility] traZODone 150 mg tablet 2021-10 013 00:00: 00 Yes [id number] TAKE ONE-HALF TABLET BY MOUTH AT BEDTIME [facility] oxybutynin chloride 5 mg tablet 2021-10 0 00:00: 00 Yes [id number] 5mg Take 1 tablet by mouth in the morning and 1 tablet in the evening. [facility] omeprazole 20 mg capsule 2021-10 0 00:00: 00 Yes [id number] 20mg Take 1 capsule by mouth in the morning. [facility] gabapentin 300 mg capsule 2021-10 0 00:00: 00 Yes [id number] TAKE 1 CAPSULE BY MOUTH 3 TIMES DAILY [facility] DULoxetine 60 mg capsule 2021-10 00:00: 00 Yes [id number] TAKE ONE CAPSULE BY MOUTH EVERY DAY. [facility] traZODone 150 mg tablet 2021-10 0 00:00: 00 Yes [id number] TAKE ONE-HALF TABLET BY MOUTH AT BEDTIME [facility] oxybutynin chloride 5 mg tablet 2021-10 0 00:00: 00 Yes [id number] 5mg Take 1 tablet by mouth in the morning and 1 tablet in the evening. [facility] omeprazole 20 mg capsule 2021-10 0 00:00: 00 Yes [id number] 20mg Take 1 capsule by mouth in the morning. [facility] gabapentin 300 mg capsule 2021-10 0 00:00: 00 Yes [id number] TAKE 1 CAPSULE BY MOUTH 3 TIMES DAILY [facility] DULoxetine 60 mg capsule 2021-10 0 00:00: 00 Yes [id number] TAKE ONE CAPSULE BY MOUTH EVERY DAY. [facility] traZODone 150 mg tablet 2021-10 0 00:00: 00 05-25 00:00 :00 No [id number] TAKE ONE-HALF TABLET BY MOUTH AT BEDTIME [facility] oxybutynin chloride 5 mg tablet 2021-10 0 00:00: 05-25 00:00 :00 No [id number] 5mg Take 1 tablet by mouth in the morning and 1 tablet in the evening. [facility] omeprazole 20 mg capsule 2021-10 0-13 00:00: 00 05-25 00:00 :00 No [id number] 20mg Take 1 capsule by mouth in the morning. [facility] gabapentin 300 mg capsule 2021-10 0- 00:00: 00 05-25 00:00 :00 No [id number] TAKE 1 CAPSULE BY MOUTH 3 TIMES DAILY [facility] DULoxetine 60 mg capsule 2021-10 0- 00:00: 00 05-25 00:00 :00 No [id number] TAKE ONE CAPSULE BY MOUTH EVERY DAY. [facility] traZODone 150 mg tablet 2021-10 0- 00:00: 00 05-25 00:00 :00 No [id number] TAKE ONE-HALF TABLET BY MOUTH AT BEDTIME [facility] oxybutynin chloride 5 mg tablet 2021-10 0 00:00: 00 05-25 00:00 :00 No [id number] 5mg Take 1 tablet by mouth in the morning and 1 tablet in the evening. [facility] omeprazole 20 mg capsule 2021-10 0- 00:00: 00 05-25 00:00 :00 No [id number] 20mg Take 1 capsule by mouth in the morning. [facility] gabapentin 300 mg capsule 2021-10 0- 00:00: 00 05-25 00:00 :00 No [id number] TAKE 1 CAPSULE BY MOUTH 3 TIMES DAILY [facility] DULoxetine 60 mg capsule 2021-10 0-13 00:00: 00 05-25 00:00 :00 No [id number] TAKE ONE CAPSULE BY MOUTH EVERY DAY. [facility] lisinopriL- hydrochloro thiazide 20-12.5 mg per tablet 2021-10 0-13 00:00: 00 01-06 00:00 :00 No [id number] 1{tbl} Take 1 tablet by mouth in the morning. [facility] traZODone 150 mg tablet 2020-10 00:00: 00 Yes [id number] TAKE ONE-HALF TABLET BY MOUTH AT BEDTIME [facility] oxybutynin chloride 5 mg tablet 2020-10 00:00: 00 Yes [id number] 5mg Take 1 tablet by mouth 2 (two) times daily. [facility] omeprazole 20 mg capsule 2020-10 00:00: 00 Yes [id number] 20mg Take 1 capsule by mouth daily. [facility] lisinopriL- hydrochloro thiazide 20-12.5 mg per tablet 2020-10 00:00: 00 Yes [id number] 1{tbl} Take 1 tablet by mouth daily. [facility] gabapentin 300 mg capsule 2020-10 00:00: 00 Yes [id number] TAKE 1 CAPSULE BY MOUTH 3 TIMES DAILY [facility] DULoxetine 60 mg capsule 2020-10 00:00: 00 Yes [id number] TAKE ONE CAPSULE BY MOUTH EVERY DAY. [facility] budesonide- formoteroL (SYMBICORT) 160-4.5 mcg/actuati on inhaler 2020-10 00:00: 00 Yes [id number] 2{puff} Inhale 2 Puffs 2 (two) times daily. [facility] atorvastati n 80 mg tablet 2020-10 00:00: 00 Yes [id number] 80mg Take 1 tablet by mouth daily. [facility] albuterol-i pratropium (COMBIVENT RESPIMAT) 20-100 mcg/actuati on inhaler 2020-10 00:00: 00 Yes [id number] 1{puff} Inhale 1 Puff 4 (four) times daily. [facility] albuterol 90 mcg/actuati on inhaler 2020-10 00:00: 00 Yes [id number] 2{puff} Inhale 2 Puffs every 6 (six) hours as needed for Wheezing or Shortness of Breath. [facility] acetaminoph en-codeine (TYLENOL-CO DEINE #3) 300-30 mg tablet 2020-10 00:00: 00 Yes [id number] 1{tbl} Take 1 tablet by mouth every 4 (four) hours as needed for Pain (scale 4-6) or Pain (scale 7-10). Indication s: chronic pain [facility] traZODone 150 mg tablet 2020-10 00:00: 00 Yes [id number] TAKE ONE-HALF TABLET BY MOUTH AT BEDTIME [facility] oxybutynin chloride 5 mg tablet 2020-10 00:00: 00 Yes [id number] 5mg Take 1 tablet by mouth 2 (two) times daily. [facility] omeprazole 20 mg capsule 2020-10 00:00: 00 Yes [id number] 20mg Take 1 capsule by mouth daily. [facility] lisinopriL- hydrochloro thiazide 20-12.5 mg per tablet 2020-10 00:00: 00 Yes [id number] 1{tbl} Take 1 tablet by mouth daily. [facility] gabapentin 300 mg capsule 2020-10 00:00: 00 Yes [id number] TAKE 1 CAPSULE BY MOUTH 3 TIMES DAILY [facility] DULoxetine 60 mg capsule 2020-10 00:00: 00 Yes [id number] TAKE ONE CAPSULE BY MOUTH EVERY DAY. [facility] budesonide- formoteroL (SYMBICORT) 160-4.5 mcg/actuati on inhaler 2020-10 00:00: 00 Yes [id number] 2{puff} Inhale 2 Puffs 2 (two) times daily. [facility] atorvastati n 80 mg tablet 2020-10 00:00: 00 Yes [id number] 80mg Take 1 tablet by mouth daily. [facility] albuterol-i pratropium (COMBIVENT RESPIMAT) 20-100 mcg/actuati on inhaler 2020-10 00:00: 00 Yes [id number] 1{puff} Inhale 1 Puff 4 (four) times daily. [facility] albuterol 90 mcg/actuati on inhaler 2020-10 00:00: 00 Yes [id number] 2{puff} Inhale 2 Puffs every 6 (six) hours as needed for Wheezing or Shortness of Breath. [facility] acetaminoph en-codeine (TYLENOL-CO DEINE #3) 300-30 mg tablet 2020-10 00:00: 00 Yes [id number] 1{tbl} Take 1 tablet by mouth every 4 (four) hours as needed for Pain (scale 4-6) or Pain (scale 7-10). Indication s: chronic pain [facility] traZODone 150 mg tablet 2020-10 00:00: 00 Yes [id number] TAKE ONE-HALF TABLET BY MOUTH AT BEDTIME [facility] oxybutynin chloride 5 mg tablet 2020-10 00:00: 00 Yes [id number] 5mg Take 1 tablet by mouth 2 (two) times daily. [facility] omeprazole 20 mg capsule 2020-10 00:00: 00 Yes [id number] 20mg Take 1 capsule by mouth daily. [facility] lisinopriL- hydrochloro thiazide 20-12.5 mg per tablet 2020-10 00:00: 00 Yes [id number] 1{tbl} Take 1 tablet by mouth daily. [facility] gabapentin 300 mg capsule 2020-10 00:00: 00 Yes [id number] TAKE 1 CAPSULE BY MOUTH 3 TIMES DAILY [facility] DULoxetine 60 mg capsule 2020-10 00:00: 00 Yes [id number] TAKE ONE CAPSULE BY MOUTH EVERY DAY. [facility] budesonide- formoteroL (SYMBICORT) 160-4.5 mcg/actuati on inhaler 2020-10 00:00: 00 Yes [id number] 2{puff} Inhale 2 Puffs 2 (two) times daily. [facility] atorvastati n 80 mg tablet 2020-10 00:00: 00 Yes [id number] 80mg Take 1 tablet by mouth daily. [facility] albuterol-i pratropium (COMBIVENT RESPIMAT) 20-100 mcg/actuati on inhaler 2020-10 00:00: 00 Yes [id number] 1{puff} Inhale 1 Puff 4 (four) times daily. [facility] albuterol 90 mcg/actuati on inhaler 2020-10 00:00: 00 Yes [id number] 2{puff} Inhale 2 Puffs every 6 (six) hours as needed for Wheezing or Shortness of Breath. [facility] acetaminoph en-codeine (TYLENOL-CO DEINE #3) 300-30 mg tablet 2020-10 00:00: 00 Yes [id number] 1{tbl} Take 1 tablet by mouth every 4 (four) hours as needed for Pain (scale 4-6) or Pain (scale 7-10). Indication s: chronic pain [facility] traZODone 150 mg tablet 2020-10 00:00: 00 Yes [id number] TAKE ONE-HALF TABLET BY MOUTH AT BEDTIME [facility] oxybutynin chloride 5 mg tablet 2020-10 00:00: 00 Yes [id number] 5mg Take 1 tablet by mouth 2 (two) times daily. [facility] omeprazole 20 mg capsule 2020-10 00:00: 00 Yes [id number] 20mg Take 1 capsule by mouth daily. [facility] lisinopriL- hydrochloro thiazide 20-12.5 mg per tablet 2020-10 00:00: 00 Yes [id number] 1{tbl} Take 1 tablet by mouth daily. [facility] gabapentin 300 mg capsule 2020-10 00:00: 00 Yes [id number] TAKE 1 CAPSULE BY MOUTH 3 TIMES DAILY [facility] DULoxetine 60 mg capsule 2020-10 00:00: 00 Yes [id number] TAKE ONE CAPSULE BY MOUTH EVERY DAY. [facility] budesonide- formoteroL (SYMBICORT) 160-4.5 mcg/actuati on inhaler 2020-10 00:00: 00 Yes [id number] 2{puff} Inhale 2 Puffs 2 (two) times daily. [facility] atorvastati n 80 mg tablet 2020-10 00:00: 00 Yes [id number] 80mg Take 1 tablet by mouth daily. [facility] albuterol-i pratropium (COMBIVENT RESPIMAT) 20-100 mcg/actuati on inhaler 2020-10 00:00: 00 Yes [id number] 1{puff} Inhale 1 Puff 4 (four) times daily. [facility] albuterol 90 mcg/actuati on inhaler 2020-10 00:00: 00 Yes [id number] 2{puff} Inhale 2 Puffs every 6 (six) hours as needed for Wheezing or Shortness of Breath. [facility] acetaminoph en-codeine (TYLENOL-CO DEINE #3) 300-30 mg tablet 2020-10 00:00: 00 Yes [id number] 1{tbl} Take 1 tablet by mouth every 4 (four) hours as needed for Pain (scale 4-6) or Pain (scale 7-10). Indication s: chronic pain [facility] traZODone 150 mg tablet 2020-10 00:00: 00 Yes [id number] TAKE ONE-HALF TABLET BY MOUTH AT BEDTIME [facility] oxybutynin chloride 5 mg tablet 2020-10 00:00: 00 Yes [id number] 5mg Take 1 tablet by mouth 2 (two) times daily. [facility] omeprazole 20 mg capsule 2020-10 00:00: 00 Yes [id number] 20mg Take 1 capsule by mouth daily. [facility] lisinopriL- hydrochloro thiazide 20-12.5 mg per tablet 2020-10 00:00: 00 Yes [id number] 1{tbl} Take 1 tablet by mouth daily. [facility] gabapentin 300 mg capsule 2020-10 00:00: 00 Yes [id number] TAKE 1 CAPSULE BY MOUTH 3 TIMES DAILY [facility] DULoxetine 60 mg capsule 2020-10 00:00: 00 Yes [id number] TAKE ONE CAPSULE BY MOUTH EVERY DAY. [facility] budesonide- formoteroL (SYMBICORT) 160-4.5 mcg/actuati on inhaler 2020-10 00:00: 00 Yes [id number] 2{puff} Inhale 2 Puffs 2 (two) times daily. [facility] atorvastati n 80 mg tablet 2020-10 00:00: 00 Yes [id number] 80mg Take 1 tablet by mouth daily. [facility] albuterol-i pratropium (COMBIVENT RESPIMAT) 20-100 mcg/actuati on inhaler 2020-10 00:00: 00 Yes [id number] 1{puff} Inhale 1 Puff 4 (four) times daily. [facility] albuterol 90 mcg/actuati on inhaler 2020-10 00:00: 00 Yes [id number] 2{puff} Inhale 2 Puffs every 6 (six) hours as needed for Wheezing or Shortness of Breath. [facility] acetaminoph en-codeine (TYLENOL-CO DEINE #3) 300-30 mg tablet 2020-10 00:00: 00 Yes [id number] 1{tbl} Take 1 tablet by mouth every 4 (four) hours as needed for Pain (scale 4-6) or Pain (scale 7-10). Indication s: chronic pain [facility] budesonide- formoteroL (SYMBICORT) 160-4.5 mcg/actuati on inhaler 2020-10 00:00: 00 Yes [id number] 2{puff} Inhale 2 Puffs 2 (two) times daily. [facility] atorvastati n 80 mg tablet 2020-10 00:00: 00 Yes [id number] 80mg Take 1 tablet by mouth daily. [facility] albuterol-i pratropium (COMBIVENT RESPIMAT) 20-100 mcg/actuati on inhaler 2020-10 00:00: 00 Yes [id number] 1{puff} Inhale 1 Puff 4 (four) times daily. [facility] albuterol 90 mcg/actuati on inhaler 2020-10 00:00: 00 Yes [id number] 2{puff} Inhale 2 Puffs every 6 (six) hours as needed for Wheezing or Shortness of Breath. [facility] acetaminoph en-codeine (TYLENOL-CO DEINE #3) 300-30 mg tablet 2020-10 00:00: 00 Yes [id number] 1{tbl} Take 1 tablet by mouth every 4 (four) hours as needed for Pain (scale 4-6) or Pain (scale 7-10). Indication s: chronic pain [facility] budesonide- formoteroL (SYMBICORT) 160-4.5 mcg/actuati on inhaler 2020-10 00:00: 00 Yes [id number] 2{puff} Inhale 2 Puffs 2 (two) times daily. [facility] atorvastati n 80 mg tablet 2020-10 00:00: 00 Yes [id number] 80mg Take 1 tablet by mouth daily. [facility] albuterol-i pratropium (COMBIVENT RESPIMAT) 20-100 mcg/actuati on inhaler 2020-10 00:00: 00 Yes [id number] 1{puff} Inhale 1 Puff 4 (four) times daily. [facility] albuterol 90 mcg/actuati on inhaler 2020-10 00:00: 00 Yes [id number] 2{puff} Inhale 2 Puffs every 6 (six) hours as needed for Wheezing or Shortness of Breath. [facility] acetaminoph en-codeine (TYLENOL-CO DEINE #3) 300-30 mg tablet 2020-10 00:00: 00 Yes [id number] 1{tbl} Take 1 tablet by mouth every 4 (four) hours as needed for Pain (scale 4-6) or Pain (scale 7-10). Indication s: chronic pain [facility] budesonide- formoteroL (SYMBICORT) 160-4.5 mcg/actuati on inhaler 2020-10 00:00: 00 Yes [id number] 2{puff} Inhale 2 Puffs 2 (two) times daily. [facility] atorvastati n 80 mg tablet 2020-10 00:00: 00 Yes [id number] 80mg Take 1 tablet by mouth daily. [facility] albuterol-i pratropium (COMBIVENT RESPIMAT) 20-100 mcg/actuati on inhaler 2020-10 00:00: 00 Yes [id number] 1{puff} Inhale 1 Puff 4 (four) times daily. [facility] albuterol 90 mcg/actuati on inhaler 2020-10 00:00: 00 Yes [id number] 2{puff} Inhale 2 Puffs every 6 (six) hours as needed for Wheezing or Shortness of Breath. [facility] acetaminoph en-codeine (TYLENOL-CO DEINE #3) 300-30 mg tablet 2020-10 00:00: 00 Yes [id number] 1{tbl} Take 1 tablet by mouth every 4 (four) hours as needed for Pain (scale 4-6) or Pain (scale 7-10). Indication s: chronic pain [facility] budesonide- formoteroL (SYMBICORT) 160-4.5 mcg/actuati on inhaler 2020-10 00:00: 00 Yes [id number] 2{puff} Inhale 2 Puffs 2 (two) times daily. [facility] albuterol-i pratropium (COMBIVENT RESPIMAT) 20-100 mcg/actuati on inhaler 2020-10 00:00: 00 Yes [id number] 1{puff} Inhale 1 Puff 4 (four) times daily. [facility] albuterol 90 mcg/actuati on inhaler 2020-10 00:00: 00 Yes [id number] 2{puff} Inhale 2 Puffs every 6 (six) hours as needed for Wheezing or Shortness of Breath. [facility] acetaminoph en-codeine (TYLENOL-CO DEINE #3) 300-30 mg tablet 2020-10 00:00: 00 Yes [id number] 1{tbl} Take 1 tablet by mouth every 4 (four) hours as needed for Pain (scale 4-6) or Pain (scale 7-10). Indication s: chronic pain [facility] budesonide- formoteroL (SYMBICORT) 160-4.5 mcg/actuati on inhaler 2020-10 00:00: 00 Yes [id number] 2{puff} Inhale 2 Puffs 2 (two) times daily. [facility] albuterol-i pratropium (COMBIVENT RESPIMAT) 20-100 mcg/actuati on inhaler 2020-10 00:00: 00 Yes [id number] 1{puff} Inhale 1 Puff 4 (four) times daily. [facility] acetaminoph en-codeine (TYLENOL-CO DEINE #3) 300-30 mg tablet 2020-10 00:00: 00 Yes [id number] 1{tbl} Take 1 tablet by mouth every 4 (four) hours as needed for Pain (scale 4-6) or Pain (scale 7-10). Indication s: chronic pain [facility] acetaminoph en-codeine (TYLENOL-CO DEINE #3) 300-30 mg tablet 2020-10 00:00: 00 Yes [id number] 1{tbl} Take 1 tablet by mouth every 4 (four) hours as needed for Pain (scale 4-6) or Pain (scale 7-10). Indication s: chronic pain [facility] acetaminoph en-codeine (TYLENOL-CO DEINE #3) 300-30 mg tablet 2020-10 00:00: 00 Yes [id number] 1{tbl} Take 1 tablet by mouth every 4 (four) hours as needed for Pain (scale 4-6) or Pain (scale 7-10). Indication s: chronic pain [facility] acetaminoph en-codeine (TYLENOL-CO DEINE #3) 300-30 mg tablet 2020-10 00:00: 00 Yes [id number] 1{tbl} Take 1 tablet by mouth every 4 (four) hours as needed for Pain (scale 4-6) or Pain (scale 7-10). Indication s: chronic pain [facility] acetaminoph en-codeine (TYLENOL-CO DEINE #3) 300-30 mg tablet 2020-10 00:00: 00 Yes [id number] 1{tbl} Take 1 tablet by mouth every 4 (four) hours as needed for Pain (scale 4-6) or Pain (scale 7-10). Indication s: chronic pain [facility] acetaminoph en-codeine (TYLENOL-CO DEINE #3) 300-30 mg tablet 2020-10 00:00: 00 Yes [id number] 1{tbl} Take 1 tablet by mouth every 4 (four) hours as needed for Pain (scale 4-6) or Pain (scale 7-10). Indication s: chronic pain [facility] acetaminoph en-codeine (TYLENOL-CO DEINE #3) 300-30 mg tablet 2020-10 00:00: 00 Yes [id number] 1{tbl} Take 1 tablet by mouth every 4 (four) hours as needed for Pain (scale 4-6) or Pain (scale 7-10). Indication s: chronic pain [facility] acetaminoph en-codeine (TYLENOL-CO DEINE #3) 300-30 mg tablet 2020-10 00:00: 00 Yes [id number] 1{tbl} Take 1 tablet by mouth every 4 (four) hours as needed for Pain (scale 4-6) or Pain (scale 7-10). Indication s: chronic pain [facility] acetaminoph en-codeine (TYLENOL-CO DEINE #3) 300-30 mg tablet 2020-10 00:00: 00 Yes [id number] 1{tbl} Take 1 tablet by mouth every 4 (four) hours as needed for Pain (scale 4-6) or Pain (scale 7-10). Indication s: chronic pain [facility] acetaminoph en-codeine (TYLENOL-CO DEINE #3) 300-30 mg tablet 2020-10 00:00: 00 Yes [id number] 1{tbl} Take 1 tablet by mouth every 4 (four) hours as needed for Pain (scale 4-6) or Pain (scale 7-10). Indication s: chronic pain [facility] acetaminoph en-codeine (TYLENOL-CO DEINE #3) 300-30 mg tablet 2020-10 00:00: 00 Yes [id number] 1{tbl} Take 1 tablet by mouth every 4 (four) hours as needed for Pain (scale 4-6) or Pain (scale 7-10). Indication s: chronic pain [facility] acetaminoph en-codeine (TYLENOL-CO DEINE #3) 300-30 mg tablet 2020-10 00:00: 00 Yes [id number] 1{tbl} Take 1 tablet by mouth every 4 (four) hours as needed for Pain (scale 4-6) or Pain (scale 7-10). Indication s: chronic pain [facility] acetaminoph en-codeine (TYLENOL-CO DEINE #3) 300-30 mg tablet 2020-10 00:00: 00 05-25 00:00 :00 No [id number] 1{tbl} Take 1 tablet by mouth every 4 (four) hours as needed for Pain (scale 4-6) or Pain (scale 7-10). [facility]: [facility] (TYLENOL-CO DEINE #3) 300-30 mg tablet 2020-10 00:00: 00 05-25 00:00 :00 No [id number] 1{tbl} Take 1 tablet by mouth every 4 (four) hours as needed for Pain (scale 4-6) or Pain (scale 7-10). Indication s: chronic pain [facility] budesonide- formoteroL (SYMBICORT) 160-4.5 mcg/actuati on inhaler 2020-10 00:00: 00 10-28 00:00 :00 No [id number] 2{puff} Inhale 2 Puffs 2 (two) times daily. [facility] albuterol-i pratropium (COMBIVENT RESPIMAT) 20-100 mcg/actuati on inhaler 2020-10 00:00: 00 10-28 00:00 :00 No [id number] 1{puff} Inhale 1 Puff 4 (four) times daily. [facility] albuterol 90 mcg/actuati on inhaler 2020-10 00:00: 00 10-25 00:00 :00 No [id number] 2{puff} Inhale 2 Puffs every 6 (six) hours as needed for Wheezing or Shortness of Breath. [facility] atorvastati n 80 mg tablet 2020-10 00:00: 00 10-10 00:00 :00 No [id number] 80mg Take 1 tablet by mouth daily. [facility] traZODone 150 mg tablet 2020-10 00:00: 00 08-11 00:00 :00 No [id number] TAKE ONE-HALF TABLET BY MOUTH AT BEDTIME [facility] oxybutynin chloride 5 mg tablet 2020-10 00:00: 00 08-11 00:00 :00 No [id number] 5mg Take 1 tablet by mouth 2 (two) times daily. [facility] omeprazole 20 mg capsule 2020-10 00:00: 00 08-11 00:00 :00 No [id number] 20mg Take 1 capsule by mouth daily. [facility] lisinopriL- hydrochloro thiazide 20-12.5 mg per tablet 2020-10 00:00: 00 08-11 00:00 :00 No [id number] 1{tbl} Take 1 tablet by mouth daily. [facility] gabapentin 300 mg capsule 2020-10 00:00: 00 08-11 00:00 :00 No [id number] TAKE 1 CAPSULE BY MOUTH 3 TIMES DAILY [facility] DULoxetine 60 mg capsule 2020-10 00:00: 00 08-11 00:00 :00 No [id number] TAKE ONE CAPSULE BY MOUTH EVERY DAY. [facility] ALBUTEROL 90 mcg/actuati on inhaler 07-01 00:00: 00 10-19 00:00 :00 No [id number] INHALE 2 PUFFS BY MOUTH EVERY 6 HOURS NEEDED FOR WHEEZING OR SHORTNESS OF BREATH [facility] ALBUTEROL 90 mcg/actuati on inhaler 07-01 00:00: 00 10-19 00:00 :00 No [id number] INHALE 2 PUFFS BY MOUTH EVERY 6 HOURS NEEDED FOR WHEEZING OR SHORTNESS OF BREATH [facility] albuterol-i pratropium (COMBIVENT RESPIMAT) 20-100 mcg/actuati on inhaler 11-10 00:00: 00 10-19 00:00 :00 No [id number] 1{puff} Inhale 1 Puff 4 (four) times daily. [facility] atorvastati n 80 mg tablet 11-10 00:00: 00 10-19 00:00 :00 No [id number] 80mg Take 1 tablet by mouth daily. [facility] budesonide- formoteroL (SYMBICORT) 160-4.5 mcg/actuati on inhaler 11-10 00:00: 00 10-19 00:00 :00 No [id number] 2{puff} Inhale 2 Puffs 2 (two) times daily. [facility] gabapentin 300 mg capsule 11-10 00:00: 00 10-19 00:00 :00 No [id number] TAKE 1 CAPSULE BY MOUTH 3 TIMES DAILY [facility] lisinopriL- hydrochloro thiazide 20-12.5 mg per tablet 11-10 00:00: 00 10-19 00:00 :00 No [id number] 1{tbl} Take 1 tablet by mouth daily. [facility] oxybutynin chloride 5 mg tablet 11-10 00:00: 00 10-19 00:00 :00 No [id number] 5mg Take 1 tablet by mouth 2 (two) times daily. [facility] traZODone 150 mg tablet 11-10 00:00: 00 10-19 00:00 :00 No [id number] TAKE ONE-HALF TABLET BY MOUTH AT BEDTIME [facility] albuterol-i pratropium (COMBIVENT RESPIMAT) 20-100 mcg/actuati on inhaler 11-10 00:00: 00 10-19 00:00 :00 No [id number] 1{puff} Inhale 1 Puff 4 (four) times daily. [facility] atorvastati n 80 mg tablet 11-10 00:00: 00 10-19 00:00 :00 No [id number] 80mg Take 1 tablet by mouth daily. [facility] budesonide- formoteroL (SYMBICORT) 160-4.5 mcg/actuati on inhaler 11-10 00:00: 00 10-19 00:00 :00 No [id number] 2{puff} Inhale 2 Puffs 2 (two) times daily. [facility] gabapentin 300 mg capsule 11-10 00:00: 00 10-19 00:00 :00 No [id number] TAKE 1 CAPSULE BY MOUTH 3 TIMES DAILY [facility] lisinopriL- hydrochloro thiazide 20-12.5 mg per tablet 11-10 00:00: 00 10-19 00:00 :00 No [id number] 1{tbl} Take 1 tablet by mouth daily. [facility] oxybutynin chloride 5 mg tablet 11-10 00:00: 00 10-19 00:00 :00 No [id number] 5mg Take 1 tablet by mouth 2 (two) times daily. [facility] traZODone 150 mg tablet 11-10 00:00: 00 10-19 00:00 :00 No [id number] TAKE ONE-HALF TABLET BY MOUTH AT BEDTIME [facility] pentazocine -naloxone 50-0.5 mg tablet 06-17 00:00: 00 10-19 00:00 :00 No [id number] 1{tbl} Take 1 tablet by mouth every 4 (four) hours as needed for Pain. Indication s: acute pain [facility] pentazocine -naloxone 50-0.5 mg tablet 06-17 00:00: 00 10-19 00:00 :00 No [id number] 1{tbl} Take 1 tablet by mouth every 4 (four) hours as needed for Pain. Indication s: acute pain [facility] vitamin B-12 (VITAMIN B-12) 1,000 mcg tablet 06-16 17:04: 54 Yes 1000ug Take 1,000 mcg by mouth daily. [facility] vitamin B-12 (VITAMIN B-12) 1,000 mcg tablet 06-16 17:04: 54 Yes 1000ug Take 1,000 mcg by mouth daily. [facility] vitamin B-12 (VITAMIN B-12) 1,000 mcg tablet 06-16 17:04: 54 Yes 1000ug Take 1,000 mcg by mouth daily. [facility] vitamin B-12 (VITAMIN B-12) 1,000 mcg tablet 06-16 17:04: 54 Yes 1000ug Take 1,000 mcg by mouth daily. [facility] vitamin B-12 (VITAMIN B-12) 1,000 mcg tablet 06-16 17:04: 54 Yes 1000ug Take 1,000 mcg by mouth daily. [facility] vitamin B-12 (VITAMIN B-12) 1,000 mcg tablet 06-16 17:04: 54 Yes 1000ug Take 1,000 mcg by mouth daily. [facility] vitamin B-12 (VITAMIN B-12) 1,000 mcg tablet 06-16 17:04: 54 Yes 1000ug Take 1,000 mcg by mouth daily. [facility] vitamin B-12 (VITAMIN B-12) 1,000 mcg tablet 06-16 17:04: 54 Yes 1000ug Take 1,000 mcg by mouth daily. [facility] vitamin B-12 (VITAMIN B-12) 1,000 mcg tablet 2020-0 8-18 17:04: 54 Yes 1000ug Take 1,000 mcg by mouth daily. [facility] vitamin B-12 (VITAMIN B-12) 1,000 mcg tablet 2020-0 818 17:04: 54 Yes 1000ug Take 1,000 mcg by mouth daily. [facility] vitamin B-12 (VITAMIN B-12) 1,000 mcg tablet 2020-0 818 17:04: 54 Yes 1000ug Take 1,000 mcg by mouth daily. [facility] vitamin B-12 (VITAMIN B-12) 1,000 mcg tablet 2020-0 818 17:04: 54 Yes 1000ug Take 1,000 mcg by mouth daily. [facility] vitamin B-12 (VITAMIN B-12) 1,000 mcg tablet 2019-0 818 17:04: 54 Yes 1000ug Take 1,000 mcg by mouth daily. [facility] vitamin B-12 (VITAMIN B-12) 1,000 mcg tablet 2019-0 18 17:04: 54 Yes 1000ug Take 1,000 mcg by mouth daily. [facility] vitamin B-12 (VITAMIN B-12) 1,000 mcg tablet 2019-0 18 17:04: 54 Yes 1000ug Take 1,000 mcg by mouth daily. [facility] vitamin B-12 (VITAMIN B-12) 1,000 mcg tablet 2019-0 18 17:04: 54 Yes 1000ug Take 1,000 mcg by mouth daily. [facility] vitamin B-12 (VITAMIN B-12) 1,000 mcg tablet 2019-0 18 17:04: 54 Yes 1000ug Take 1,000 mcg by mouth daily. [facility] vitamin B-12 (VITAMIN B-12) 1,000 mcg tablet 2020-0 818 17:04: 54 Yes 1000ug Take 1,000 mcg by mouth daily. [facility] vitamin B-12 (VITAMIN B-12) 1,000 mcg tablet 2020-0 8-18 17:04: 54 Yes 1000ug Take 1,000 mcg by mouth daily. [facility] vitamin B-12 (VITAMIN B-12) 1,000 mcg tablet 2020-0 8-18 17:04: 54 Yes 1000ug Take 1,000 mcg by mouth daily. [facility] vitamin B-12 (VITAMIN B-12) 1,000 mcg tablet 06-16 17:04: 54 Yes 1000ug Take 1,000 mcg by mouth daily. [facility] acetaminoph en-codeine (TYLENOL-CO DEINE #3) 300-30 mg tablet 06-16 00:00: 00 10-19 00:00 :00 No [id number] 1{tbl} Take 1 tablet by mouth every 4 (four) hours as needed for Pain (scale 4-6) or Pain (scale 7-10). Indication s: acute pain [facility] acetaminoph en-codeine (TYLENOL-CO DEINE #3) 300-30 mg tablet 06-16 00:00: 00 10-19 00:00 :00 No [id number] 1{tbl} Take 1 tablet by mouth every 4 (four) hours as needed for Pain (scale 4-6) or Pain (scale 7-10). Indication s: acute pain [facility] omeprazole 20 mg capsule 6 00:00: 00 10-19 00:00 :00 No [id number] 20mg Take 1 capsule by mouth daily. [facility] omeprazole 20 mg capsule 6 00:00: 00 10-19 00:00 :00 No [id number] 20mg Take 1 capsule by mouth daily. [facility] traMADol 50 mg tablet 2018-10 0-07 00:00: 00 10-19 00:00 :00 No [id number] 50mg Take 1 tablet by mouth every 6 (six) hours as needed (pain). [facility] traMADol 50 mg tablet 2018-10 0-07 00:00: 00 10-19 00:00 :00 No [id number] 50mg Take 1 tablet by mouth every 6 (six) hours as needed (pain). [facility] DULoxetine 60 mg capsule 3-19 00:00: 00 10-19 00:00 :00 No [id number] TAKE ONE CAPSULE BY MOUTH EVERY DAY. [facility] DUL[facility] mg capsule 19 00:00: 00 10-19 00:00 :00 No [id number] TAKE ONE CAPSULE BY MOUTH EVERY DAY. [facility] mupirocin 2 % ointment 0 4-04 00:00: 00 Yes [id number] Apply to area(s) 3 (three) times daily. [facility] mupirocin 2 % ointment 0 4- 00:00: 00 Yes [id number] Apply to area(s) 3 (three) times daily. [facility] mupirocin 2 % ointment 0 4-04 00:00: 00 Yes [id number] Apply to area(s) 3 (three) times daily. [facility] mupirocin 2 % ointment 0 4-04 00:00: 00 Yes [id number] Apply to area(s) 3 (three) times daily. [facility] mupirocin 2 % ointment 0 4-04 00:00: 00 Yes [id number] Apply to area(s) 3 (three) times daily. [facility] mupirocin 2 % ointment 0 4-04 00:00: 00 Yes [id number] Apply to area(s) 3 (three) times daily. [facility] mupirocin 2 % ointment 0 4-04 00:00: 00 Yes [id number] Apply to area(s) 3 (three) times daily. [facility] mupirocin 2 % ointment 2018-0 4-04 00:00: 00 Yes [id number] Apply to area(s) 3 (three) times daily. [facility] mupirocin 2 % ointment 2017-0 4-04 00:00: 00 Yes [id number] Apply to area(s) 3 (three) times daily. [facility] mupirocin 2 % ointment 2017-0 4-04 00:00: 00 Yes [id number] Apply to area(s) 3 (three) times daily. [facility] mupirocin 2 % ointment 2018-0 4-04 00:00: 00 Yes [id number] Apply to area(s) 3 (three) times daily. [facility] mupirocin 2 % ointment 2018-0 4-04 00:00: 00 Yes [id number] Apply to area(s) 3 (three) times daily. [facility] mupirocin 2 % ointment 2018-0 4-04 00:00: 00 Yes [id number] Apply to area(s) 3 (three) times daily. [facility] mupirocin 2 % ointment 2018-0 4-04 00:00: 00 Yes [id number] Apply to area(s) 3 (three) times daily. [facility] mupirocin 2 % ointment 2018-0 4-04 00:00: 00 Yes [id number] Apply to area(s) 3 (three) times daily. [facility] mupirocin 2 % ointment 2018-0 4-04 00:00: 00 Yes [id number] Apply to area(s) 3 (three) times daily. [facility] mupirocin 2 % ointment 2018-0 4-04 00:00: 00 Yes [id number] Apply to area(s) 3 (three) times daily. [facility] mupirocin 2 % ointment 2018-0 4-04 00:00: 00 Yes [id number] Apply to area(s) 3 (three) times daily. [facility] mupirocin 2 % ointment 2018-0 4-04 00:00: 00 Yes [id number] Apply to area(s) 3 (three) times daily. [facility] mupirocin 2 % ointment 2018-0 4-04 00:00: 00 Yes [id number] Apply to area(s) 3 (three) times daily. [facility] mupirocin 2 % ointment 2018-0 4-04 00:00: 00 Yes [id number] Apply to area(s) 3 (three) times daily. [facility] mup[facility]cin 2 % ointment 4-04 00:00: 00 05-25 00:00 :00 No [id number] Apply to area(s) 3 (three) times daily. [facility] mupirocin 2 % ointment 4-04 00:00: 00 05-25 00:00 :00 No [id number] Apply to area(s) 3 (three) times daily. [facility] Vital Signs Vital Name Observation Time Observation Value Comments S shellie Systolic blood pressure 2023-06-05 14:54:00 164 mm[Hg] [facility] Diastolic blood pressure 2023-06-05 14:54:00 90 mm[Hg] [facility] Heart rate 2023-06-05 14:54:00 60 /min [facility] Respiratory rate 2023-06-05 14:53:00 19 /min [facility] Body height 2023-06-05 14:53:00 170.2 cm [facility] Body weight 2023-06-05 14:53:00 52.481 kg [facility] BMI 2023-06-05 14:53:00 18.12 kg/m2 [facility] Oxygen saturation in Arterial blood by Pulse oximetry 2023-06-05 14:53:00 96 /min [facility] Systolic blood pressure 2023-05-25 15:02:00 150 mm[Hg] [facility] Diastolic blood pressure 2023-05-25 15:02:00 80 mm[Hg] [facility] Heart rate 2023-05-25 15:01:00 76 [facility] 2023-05-25 15:01:00 170.2 cm [facility] Body weight 2023-05-25 15:01:00 52.164 kg [facility] BMI 2023-05-25 15:01:00 18.01 kg/m2 [facility] Systolic blood pressure 2021-10-19 19:02:00 144 mm[Hg] [facility] Diastolic blood pressure 2021-10-19 19:02:00 82 mm[Hg] [facility] Heart rate 2021-10-19 19:01:00 66 /min [facility] Body height 2021-10-19 19:01:00 167.6 cm [facility] Body weight 2021-10-19 19:01:00 51.256 kg [facility] BMI 2021-10-19 19:01:00 18.24 kg/m2 [facility] Procedures Procedure Date / Time Performed Performing Clinicia n Source EXTERNAL PROVIDER RECORDS 2022-06-23 05:01:00 Doctor Unassigned, Jarales [facility] Encounters Start Date/Time End Date/Time Encounter Type Admission Type Attending Clinicians Care Facility Care Department Encounter ID Source 2021-08-27 12:05:24 Inpatient R CAROLINA OLIVARES [facility] CAROL [id number] [facility] 2023-09-04 00:00:00 2023-09-04 00:00:00 Cornelius Crenshaw [facility] BUILDING 1.2.840.114 350.1.13.10 4.2.7.2.686 [id number] [facility] 2023-08-07 00:00:00 2023-08-07 00:00:00 Cornelius Crenshaw [facility] MED[facility] OFF[facility] BUILDING 1.2.840.114 350.1.13.10 4.2.7.2.686 [id number] [facility] 2023-06-17 00:00:00 2023-06-17 00:00:00 Cornelius Betikatherin [facility] MED[facility] OFF[facility] BUILDING 1.2.840.114 350.1.13.10 4.2.7.2.686 [id number] [facility] 2023-06-05 10:00:00 2023-06-05 10:19:31 Outpatient R DOMINIQUE ZALDIVAR SHIWAN [facility] [id number] [facility] 2023-06-05 10:00:00 2023-06-05 10:19:31 Office Visit Dominique Zaldivar [facility] BUILDING 1.2.840.114 350.1.13.10 4.2.7.2.686 [id number] [facility] 2023-05-25 10:15:00 2023-05-25 10:30:00 Office Visit Lebron Crenshaw [facility] 1.2.840.114 350.1.13.10 4.2.7.2.686 [id number] [facility] 2023-05-25 10:15:00 2023-05-25 10:15:00 Outpatient R BRYAAN LEBRON [facility] [id number] [facility] 2023-05-22 14:00:00 2023-05-22 14:00:00 Outpatient R BRAYAN LEBRON [facility] [id number] [facility] 2023-05-19 11:00:00 2023-05-19 11:00:00 Outpatient R [facility] [id number] [facility] 2023-04-27 00:00:00 2023-04-27 00:00:00 Telephone Dominique Zaldivar [facility] BUILDING 1.2.840.114 350.1.13.10 4.2.7.2.686 [id number] [facility] 2023-04-25 11:00:00 2023-04-25 11:00:00 Outpatient R DOMINIQUE ZALDIVAR SHIORLoretta [facility] [id number] [facility] 2023-04-25 00:00:00 2023-04-25 00:00:00 Refill Dominique Zaldivar [facility] 1.2.840.114 350.1.13.10 4.2.7.2.686 [id number] [facility] 2023-04-21 00:00:00 2023-04-21 00:00:00 Dominique Schmid [facility] 1.2.840.114 350.1.13.10 4.2.7.2.686 [id number] [facility] 2023-03-24 10:30:00 2023-03-24 10:30:00 Out[facility] [id number] [facility] 2023-01-11 00:00:00 2023-01-11 00:00:00 Refill Lebron Crenshaw [facility] 1.2.840.114 350.1.13.10 4.2.7.2.686 [id number] [facility] 2023-01-06 00:00:00 2023-01-06 00:00:00 Refill Lebron Crenshaw [facility] 1.2.840.114 350.1.13.10 4.2.7.2.686 [id number] [facility] 2022-12-26 11:40:00 2022-12-26 11:40:00 Outpatient IGNACIA HARPER [facility] [id number] [facility] 2022-12-23 16:30:00 2022-12-23 16:30:00 Outpatient YUMIKO WADE [facility] [id number] [facility] 2022-12-16 16:30:00 2022-12-16 16:30:00 Outpatient YUMIKO WADE [facility] [id number] [facility] 2022-12-14 00:00:00 2022-12-14 00:00:00 [facility] BU[facility] 1.2.840.114 350.1.13.10 4.2.7.2.686 [id number] [facility] 2022-12-14 00:00:00 2022-12-14 00:00:00 Refill Rickie Dominique [facility] 1.2.840.114 350.1.13.10 4.2.7.2.686 [id number] [facility] 2022-12-14 00:00:00 2022-12-14 00:00:00 Refill Stephanie Zaldivarorloretta [facility] BUILDING 1.2.840.114 350.1.13.10 4.2.7.2.686 [id number] [facility] 2022-11-28 00:00:00 2022-11-28 00:00:00 Refill Lebron Crenshaw [facility] BUILDING 1.2.840.114 350.1.13.10 4.2.7.2.686 [id number] [facility] 2022-11-07 00:00:00 2022-11-07 00:00:00 Lebron Alfaro [facility] BUILDING 1.2.840.114 350.1.13.10 4.2.7.2.686 [id number] [facility] 2022-10-28 00:00:00 2022-10-28 00:00:00 Lebron Alfaro [facility] BUILDING 1.2.840.114 350.1.13.10 4.2.7.2.686 [id number] [facility] 2022-10-23 00:00:00 2022-10-23 00:00:00 Refill Lebron Crenshaw [facility] BUILDING 1.2.840.114 350.1.13.10 4.2.7.2.686 [id number] [facility] 2022-10-08 00:00:00 2022-10-08 00:00:00 Lebron Alfaro [facility] BUILDING 1.2.840.114 350.1.13.10 4.2.7.2.686 [id number] [facility] 2022-10-02 00:00:00 2022-10-02 00:00:00 Cornelius Crenshaw [facility] BUILDING 1.2.840.114 350.1.13.10 4.2.7.2.686 [id number] [facility] 2022-09-16 00:00:00 2022-09-16 00:00:00 Refill Lebron Crenshaw [facility] BUILDING 1.2.840.114 350.1.13.10 4.2.7.2.686 [id number] [facility] 2022-08-11 00:00:00 2022-08-11 00:00:00 [facility] 1.2.840.114 350.1.13.10 4.2.7.2.686 [id number] [facility] 2022-08-11 00:00:00 2022-08-11 00:00:00 Refill Lebron Crenshaw [facility] BUILDING 1.2.840.114 350.1.13.10 4.2.7.2.686 [id number] [facility] 2022-07-27 00:00:00 2022-07-27 00:00:00 Telephone Lebron Crenshaw [facility] 1.2.840.114 350.1.13.10 4.2.7.2.686 [id number] [facility] 2022-06-23 00:00:00 2022-06-23 00:00:00 Orders Only Doctor Unassigned, Jarales [facility] 1..840.114 350.1.13.10 4.2.7.2.686 [id number] [facility] 2022-05-11 12:30:00 2022-05-11 12:30:00 Outpatient YUMIKO WADE [facility] [id number] [facility] 2022-04-29 10:30:00 2022-04-29 10:30:00 Outpatient YUMIKO WADE [facility] [id number] [facility] 2022-04-19 10:15:00 2022-04-19 10:15:00 Outpatient LEBRON HENDRIX [facility] [id number] [facility] 2021-10-19 13:00:00 2021-10-19 13:15:00 Office Visit Lebron Crenshaw [facility] 1.2.840.114 350.1.13.10 4.2.7.2.686 [id number] [facility] 2021-10-19 13:00:00 2021-10-19 13:13:28 Outpatient LEBRON HENDRIX [facility] [id number] [facility] 2021-10-19 13:00:00 2021-10-19 13:00:00 Outpatient LEBRON HENDRIX [facility] [id number] [facility] 2021-10-19 00:00:00 2021-10-19 00:00:00 Orders Only Doctor Unassigned, Jarales [facility] 1.2.840.114 350.1.13.10 4.2.7.2.686 [id number] [facility] 2021-10-14 11:15:00 2021-10-14 11:15:00 Outpatient LEBRON HENDRIX [facility] [id number] [facility] 2021-10-13 09:00:00 2021-10-13 09:00:00 Outpatient LEBRON HENDRIX [facility] [id number] [facility] 2021-10-06 16:00:00 2021-10-06 16:00:00 Outpatient LEBRON HENDRIX [facility] [id number] [facility] 2021-09-29 00:00:00 2021-09-29 00:00:00 Cornelius Crenshaw [facility] OFFICE BUILDING ONE 1..840.114 350.1.13.10 4.2.7.2.686 [id number] [facility] 2021-08-30 00:00:00 2021-08-30 00:00:00 Cornelius Betikatherin [facility] OFFICE BUILDING ONE 1..840.114 350.1.13.10 4.2.7.2.686 [id number] [facility] 2021-07-01 00:00:00 2021-07-01 00:00:00 Cornelius Crenshaw [facility] Office Building One ..840.114 350.1.13.10 4.2.7.2.686 [id number] [facility] 2020-12-15 10:30:00 2020-12-15 10:30:00 Outpatient LEBRON HENDRIX [facility] [id number] [facility] 2020-09-10 14:00:00 2020-09-10 14:00:00 Outpatient CAROLINA YEUNG [facility] [id number] [facility] 2020-09-09 13:15:00 2020-09-09 13:15:00 Outpatient CAROLINA YEUNG [facility] [id number] [facility] 2020-08-31 15:30:00 2020-08-31 15:30:00 Outpatient CAROLINA YEUNG [facility] [id number] [facility] 2020-08-05 09:20:00 2020-08-05 09:20:00 Outpatient CAROLINA YEUNG [facility] [id number] [facility] 2020-07-23 09:00:00 2020-07-23 09:00:00 Outpatient R [facility] [id number] [facility] 2020-07-02 09:00:00 2020-07-02 09:00:00 Outpatient KEVIN MICHAEL [facility] [id number] [facility] 2020-06-11 07:45:00 2020-06-11 07:45:00 Outpatient CAROLINA YEUNG [facility] [id number] [facility] 2020-06-08 14:00:00 2020-06-08 14:00:00 Outpatient KEVIN MICHAEL [facility] [id number] [facility] 2020-06-02 13:15:00 2020-06-02 13:15:00 Outpatient KEVIN MICHAEL [facility] [id number] [facility] 2020-05-18 10:00:00 2020-05-18 10:00:00 Outpatient R [facility] [id number] [facility] 2020-05-14 11:00:00 2020-05-14 11:00:00 Outpatient DOMINIQUE DEVINE SHIWAN [facility] [id number] [facility] 2020-05-12 11:30:00 2020-05-12 11:30:00 Outpatient JERSON CEDEÑO [facility] [id number] [facility] 2020-04-29 15:45:00 2020-04-29 15:45:00 Outpatient CAROLINA YEUNG [facility] [id number] [facility] 2020-04-23 12:55:47 2020-04-23 23:59:00 Outpatient CAROLINA YEUNG [facility] [id number] [facility] 2020-03-26 10:00:00 2020-03-26 10:00:00 Outpatient CAROLINA YEUNG [facility] [id number] [facility] 2020-03-19 10:15:00 2020-03-19 10:15:00 Outpatient CAROLINA YEUNG [facility] [id number] [facility] 2020-02-06 09:00:00 2020-02-06 09:00:00 Outpatient DOMINIQUE DEVINE SHIWAN [facility] [id number] [facility] 2020-01-10 10:23:16 2020-01-10 23:59:00 Outpatient LEBRON HENDRIX [facility] [id number] [facility] 2019-12-26 09:30:00 2019-12-26 09:30:00 Outpatient KEVIN MICHAEL [facility] [id number] [facility] 2019-11-21 10:15:00 2019-11-21 10:15:00 Outpatient CAROLINA YEUNG [facility] [id number] [facility] 2019-11-14 10:15:00 2019-11-14 12:25:55 Outpatient CAROLINA YEUNG [facility] [id number] [facility]
[2023-11-08 09:31] LABS: SARS-CoV-2 Antigen Rapid Res Negative (Negative)
[2023-11-08 09:38] LABS: Absolute Lymphocytes (CBC) 1.1 K/uL (0.7-4.9); Hematocrit 49.1 % (36.0-45.0); Lymphocytes % 6.7 % (15.3-44.8); MPV 7.4 fL (7.6-11.3); Platelets 417 thou/uL (152-406); RBC Red Blood Cell Count 5.34 M/uL (3.86-4.86)
[2023-11-08 09:43] LABS: Protime INR 0.97
[2023-11-08 09:51] LABS: Albumin 3.7 g/dL (3.4-5.0); Bilirubin Total 0.6 mg/dL (0.2-1.0); Potassium 3.7 mEq/L (3.5-5.1); Protein, Total 8.5 g/dL (6.4-8.2)
--- NOTE | 2023-11-08 09:53 | RAD REPORT ---
EXAM DESCRIPTION: Danilo Single View11/08/2023 9:31 am CLINICAL HISTORY: cough, sob COMPARISON: No comparisons TECHNIQUE: Portable AP view of the chest. FINDINGS: The lungs are clear. Hyperlucency and hyperinflation suggestive of COPD. No pneumothorax o r effusion. The cardiomediastinal contours are unremarkable. IMPRESSION: No acute cardiopulmonary process.
--- NOTE | 2023-11-08 11:05 | RAD REPORT ---
EXAM DESCRIPTION: CT - Head Brain Wo Cont - 11/08/2023 10:05 am CLINICAL HISTORY: fall, head injury COMPARISON: No comparisons TECHNIQUE: Noncontrast head CT images were obtained without IV contrast. Multiplanar reformats were generated and reviewed. All CT scans are performed using dose optimization technique as appropriate and may include automated exposure control or mA/KV adjustment according to patient size. FINDINGS: No intracranial hemorrhage, mass, or edema. Midline structures are unremarkable. Normal ventricular caliber for age. Pagan-white matter differentiation is preserved, without evidence of acute infarct. No abnormal extra- axial fluid collections. Mastoid air cells and visualized portions of the paranasal sinuses are clear. No acute bony findings. IMPRESSION: No evidence of an acute intracranial process.
--- NOTE | 2023-11-08 11:16 | RAD REPORT ---
EXAM DESCRIPTION: CT - Abdomen Pelvis W Contrast - 11/08/2023 10:05 am CLINICAL HISTORY: Abd pain;Constipation COMPARISON: No comparisons TECHNIQUE: Thin cut axial CT imaging of the abdomen and pelvis was performed following intravenous a dministration of 100 mL Isovue 300. Multiplanar reformats were generated and reviewed. All CT scans are performed using dose optimization technique as appropriate and may include automated exposure control or mA/KV adjustment according to patient size. FINDINGS: No suspicious findings in the lung bases. The liver, spleen, adrenal glands, and pancreas show no suspicious findings. Gallbladder and biliary tree are also without suspicious finding. Symmetric renal function is seen with no hydronephrosis or suspicious renal mass. Long segments of small bowel mild caliber prominence and scattered segments of small bowel fluid opac ification. No focal transition point. Wall thickening with mucosal enhancement along the distal stoma ch and proximal duodenum. No free air, free fluid or other inflammatory stranding. No hernia, mass or bulky lymphadenopathy. The urinary bladder is without significant finding. No suspicious bony findings. IMPRESSION: Small bowel mild caliber prominence and segments of fluid opacification, may suggest mil d enteritis or diarrheal state. Distal stomach and proximal duodenal wall thickening, suggestive of gastritis and duodenitis.
[2023-11-08] MEDS ORDERED: NA CHLORIDE 0.9% 1,000 ML ONE (11:54)
[2023-11-08] MEDS ORDERED: CIPROFLOXACIN 400mg IV 400 MG/200 ML BAG IV ONE (11:54)
[2023-11-08] MEDS ORDERED: lisinopriL 20 MG TAB ONE (11:54)
[2023-11-08] MEDS ORDERED: METRONIDAZOLE 500mg IVPB 500 MG/100 ML BAG IV ONE (11:55)
[2023-11-08] MEDS ORDERED: DERMABOND SKIN ADHESIVE TOP ONE (12:03)
--- NOTE | 2023-11-08 12:13 | ER ---
Nurse's Notes [facility] Name: Angie Quintero Age: 62 yrs Sex: Female : 1960 Arrival Date: 11/08/2023 Time: 08:53 Bed 20 Private MD: Diagnosis: Infectious gastroenteritis and colitis, unspecified;Dehydration;Muscle weakness (generalized);Unspecified injury of head, initial encounter Presentation: 11/08 08:58 Chief complaint: Patient states: Body aches, abdominal pain, constipation, weakness, ll1 cough, malaise for a few days. Fell last night, laceration R eyebrow. Denies LOC. Coronavirus screen: Client denies travel out of the [place] in the last 14 days. cough unrelated to allergies, fatigue, headache, muscle pain, Client presents with at least one sign or symptom that may indicate coronavirus-19. Standard/surgical mask placed on the client. Ebola Screen: Patient denies travel to an Ebola-affected area in the 21 days before illness onset. Initial Sepsis Screen: Does the patient meet any 2 criteria? No. Patient's initial sepsis screen is negative. Does the patient have a suspected source of infection? Yes: Acute abdominal pain. Risk Assessment: Do you want to hurt yourself or someone else? Patient reports no desire to harm self or others. Onset of symptoms was November 06, 2023. 08:58 Method Of Arrival: EMS ll1 08:58 Acuity: JENY 3 ll1 Historical: - Allergies: 08:58 No Known Allergies; ll1 - PMHx: 08:58 COPD; ll1 - PSHx: 08:58 None; ll1 - Immunization history:: Adult Immunizations up to date. - Social history:: Smoking status: Patient/guardian denies using tobacco. - Family history:: not pertinent. - Hospitalizations: : No recent hospitalization is reported. Screenin:10 [facility] ED Fall Risk Assessment (Adult) Score/Fall Risk Level 3 or more points = High nj1 Risk Oriented to surroundings, Maintained a safe environment, Educated pt \\T\\ family on fall prevention, incl call for assistance when getting out of bed, Assessed \\T\\ reinforced patient's understanding of fall precautions, Hourly rounding (assess needs \\T\\ fall precautionary measures) done, Used ambulatory aids as needed (educated on \\T\\ assisted with), Remained with patient while ambulating. Abuse screen: Denies threats or abuse. Denies injuries from another. Nutritional screening: No deficits noted. Tuberculosis screening: No symptoms or risk factors identified. Assessment: 09:10 General: Appears in no apparent distress. uncomfortable, Behavior is calm, cooperative, nj1 appropriate for age. 09:10 Pain: Complains of pain in abdomen Pain currently is 10 out of 10 on a pain scale. nj1 Neuro: Level of Consciousness is awake, alert, obeys commands, Oriented to person, place, time, situation. Neuro: Reports weakness. Cardiovascular: Patient's skin is warm and dry. Respiratory: Airway is patent Respiratory effort is even, unlabored. GI: Reports lower abdominal pain, upper abdominal pain, constipation. 09:10 Injury Description: Laceration sustained to right eye. nj1 10:19 Reassessment: Patient appears in no apparent distress at this time. No changes from [facility] previously documented assessment. Patient and/or family updated on plan of care and expected duration. Pain level reassessed. Patient is alert, oriented x 3, equal unlabored respirations, skin warm/dry/pink. 12:00 Reassessment: Patient appears in no apparent distress at this time. Patient and/or nj1 family updated on plan of care and expected duration. Pain level reassessed. Patient is alert, oriented x 3, equal unlabored respirations, skin warm/dry/pink. 13:15 Reassessment: Patient appears in no apparent distress at this time. Patient and/or nj1 family updated on plan of care and expected duration. Pain level reassessed. Patient is alert, oriented x 3, equal unlabored respirations, skin warm/dry/pink. 14:00 Reassessment: Unable to give report due to "bed not being assigned". cm10 Vital Signs: 08:58 BP 161 / 107; Pulse 74; Resp 16; Temp 97.7; Pulse Ox 100% on R/A; Weight 49.9 kg; ll1 Height 5 ft. 2 in. ; Pain 10; 09:20 BP 174 / 102; Pulse 71; Resp 20; Pulse Ox 98% ; Pain 10; nj1 10:20 BP 190 / 107; Pulse 73; Resp 18; Pulse Ox 97% on R/A; Pain 10; nj1 11:00 BP 171 / 104; Pulse 76; Resp 17; Pulse Ox 96% ; nj1 12:00 BP 181 / 89; Pulse 77; Resp 17; Pulse Ox 100% on R/A; nj1 13:11 BP 162 / 93; Pulse 62; Resp 16; Pulse Ox 98% ; nj1 08:58 Body Mass Index 20.12 (49.90 kg, 157.48 cm) ll1 08:58 Pain Scale: Adult ll1 09:20 Pain Scale: Adult nj1 10:20 Pain Scale: Adult [facility] ED Course: 08:52 Arm band placed on Patient placed in an exam room, on a stretcher. ll1 08:55 Patient arrived in ED. rn 08:55 Galo Weller MD is Attending Physician. rn 09:03 Azalea Daigle RN is Primary Nurse. nj1 09:03 Triage completed. ll1 09:10 Patient has correct armband on for positive identification. Bed in low position. Call ny1 light in reach. 09:10 Provided Education on: call light, fall precautions. nj1 09:10 Inserted saline lock: 22 gauge in right antecubital area, using aseptic technique. nj1 Blood collected. 09:13 EKG done, COVID swab sent to lab. Flu and/or RSV swab sent to lab. aw1 09:33 XRAY Chest (1 view) In Process Unspecified. EDMS 09:33 Basic Metabolic Panel Sent. nj1 10:06 CT Head Brain wo Cont In Process Unspecified. EDMS 10:06 CT Abd/Pelvis - IV Contrast Only In Process Unspecified. EDMS 10:20 Wound care: to laceration located on outer aspect of right eyebrow was cleaned with [facility] soap and water, Patient tolerated poorly. 10:25 Notified ED physician of vital signs. nj1 12:12 Ale Blunt MD is Hospitalizing Provider. rn 14:13 No provider procedures requiring assistance completed. Patient admitted, IV remains in cm10 place. Administered Medications: 12:12 Drug: NS 0.9% IV 1000 ml IV at 1000 ml once Route: IV; Rate: 1000 ml; Site: right [facility] antecubital; 12:12 Drug: Lisinopril PO 20 mg PO once Route: PO; nj1 12:20 Drug: Ciprofloxacin IVPB 400 mg 200 ml IVPB once over 60 mins Volume: 200 ml; Route: nj1 IVPB; Infused Over: 60 mins; Site: right antecubital; 12:20 Drug: metroNIDAZOLE IVPB 500 mg 100 ml IVPB at 200 ml/hr once over 30 mins Volume: 100 nj1 ml; Route: IVPB; Rate: 200 ml/hr; Infused Over: 30 mins; Site: right antecubital; 12:58 Follow up: Response: No adverse reaction; IV Status: Completed infusion; IV Intake: nj1 100ml Medication: 12:57 VIS not applicable for this client. nj1 Intake: 12:58 IV: 100ml; Total: 100ml. nj1 Outcome: 12:13 Decision to Hospitalize by Provider. rn 14:12 Admitted to Med/surg accompanied by tech, via wheelchair, room 211, Report called to dana Pascal RN 14:12 Condition: good 14:12 Instructed on the need for admit, 14:28 Patient left the ED. 1 Signatures: Dispatcher [employer] EDMS Galo Weller MD MD rn Lewis, Lynsay, RN RN 1 Azalea Daigle RN RN nj1 Martinez, Clarissa, RN RN Amelia Moser aw1 Corrections: (The following items were deleted from the chart) 09:05 08:58 Chief complaint: Patient states: Body aches, abdominal pain, constipation, ll1 weakness, malaise for a few days. Fell last night, laceration R eyebrow. Denies LOC ll1 09:42 09:39 Injury Description: Laceration sustained to right eye nj1 nj1
--- NOTE | 2023-11-08 12:13 | EDPHYS ---
Physician Documentation [facility] Name: Angie Quintero Age: 62 yrs Sex: Female : 1960 Arrival Date: 11/08/2023 Time: 08:53 Bed 20 Private MD: ED Physician Galo Weller HPI: 11/08 08:58 This 62 yrs old Female presents to ER via Unassigned with complaints of abdominal pain, rn fall, cough. 08:58 The patient presents with abdominal pain that is diffuse. Onset: The symptoms/episode rn began/occurred at an unknown time. The symptoms do not radiate. Associated signs and symptoms: Pertinent positives: constipation, shortness of breath, Pertinent negatives: blood in stools, chest pain, hematuria, vomiting blood. The symptoms are described as achy. Modifying factors: The symptoms are alleviated by nothing, the symptoms are aggravated by nothing. Severity of pain: At its worst the pain was mild in the emergency department the pain is unchanged. The patient has not experienced similar symptoms in the past. Patient reports here for a few things. Has not felt well over the last few days with myalgias, cough, malaise. Reports biggest concern is abdominal pain and constipation that she has had over the last 3 days. Last bowel movement 3 days ago. No blood in stool. No vomiting. Also fell last night. Denies syncope. Not sure what she hit. Also cannot tell me exactly what caused her fall. Reports has COPD and cough with mild shortness of breath.. Historical: - Allergies: 08:58 No Known Allergies; ll1 - PMHx: 08:58 COPD; ll1 - PSHx: 08:58 None; ll1 - Immunization history:: Adult Immunizations up to date. - Social history:: Smoking status: Patient/guardian denies using tobacco. - Family history:: not pertinent. - Hospitalizations: : No recent hospitalization is reported. ROS: 08:58 Constitutional: Negative for fever, chills, and weight loss, positive for myalgias rn Neck: Negative for injury, pain, and swelling, Cardiovascular: Negative for chest pain, palpitations, and edema, Respiratory: Positive for cough and shortness of breath Abdomen/GI: Positive for abdominal pain and constipation MS/Extremity: Negative for injury and deformity, Skin: Negative for injury, rash, and discoloration, Neuro: Negative for headache, numbness, tingling, and seizure, Exam: 08:58 Constitutional: This is a well developed, well nourished patient who is awake, alert, rn and in no acute distress. Head/Face: Normocephalic, 2 cm very superficial laceration hidden in right eyebrow. No active bleeding. Does not gape open with lateral pressure Eyes: Pupils equal round and reactive to light, extra-ocular motions intact ENT: No evidence of oral trauma noted Neck: No midline cervical tenderness. No meningismus. Chest/axilla: Normal chest wall appearance and motion. Nontender with no deformity. Cardiovascular: Regular rate and rhythm. No pulse deficits. Respiratory: Mild tachypnea, no retractions. Abdomen/GI: Soft, mild tenderness in all 4 quadrants. No distention. No peritoneal signs. Skin: Warm, dry MS/ Extremity: Pulses equal, no cyanosis. Neuro: Awake and alert, GCS 15 09:25 ECG was reviewed by the Attending Physician. rn Vital Signs: 08:58 BP 161 / 107; Pulse 74; Resp 16; Temp 97.7; Pulse Ox 100% on R/A; Weight 49.9 kg; ll1 Height 5 ft. 2 in. ; Pain 10/10; 09:20 BP 174 / 102; Pulse 71; Resp 20; Pulse Ox 98% ; Pain 10/10; nj1 10:20 BP 190 / 107; Pulse 73; Resp 18; Pulse Ox 97% on R/A; Pain 10/10; nj1 11:00 BP 171 / 104; Pulse 76; Resp 17; Pulse Ox 96% ; nj1 12:00 BP 181 / 89; Pulse 77; Resp 17; Pulse Ox 100% on R/A; nj1 13:11 BP 162 / 93; Pulse 62; Resp 16; Pulse Ox 98% ; nj1 08:58 Body Mass Index 20.12 (49.90 kg, 157.48 cm) ll1 08:58 Pain Scale: Adult ll1 09:20 Pain Scale: Adult nj1 10:20 Pain Scale: Adult nj1 Laceration: 11/09 07:01 Wound Repair of 2cm ( 0.8in ) subcutaneous laceration to outer aspect of right eyebrow. rn Distal neuro/vascular/tendon intact. Wound prep: Extensive cleansing by nurse by me, Wound explored. Skin closed with 1 thin layer Adhesive skin closure using Dermabond. Patient tolerated well. MDM: 11/08 08:55 Patient medically screened. rn 12:11 Differential diagnosis: appendicitis, bowel obstruction, cholecystitis, Cholelithiasis, rn diverticulitis, gastritis, non-specific abd pain, pancreatitis, Peptic Ulcer Disease, Pyelonephritis, Ureterolithiasis, urinary tract infection. Data reviewed: vital signs, nurses notes, lab test result(s), EKG, radiologic studies, CT scan, plain films, and as a result, I will admit patient. Consideration of Admission/Observation Patient was admitted/placed on observation. Escalation of care including admission/observation considered. Management of patient was discussed with the following: Hospitalist: . Counseling: I had a detailed discussion with the patient and/or guardian regarding the historical points, exam findings, and any diagnostic results supporting the discharge/admit diagnosis, lab results, radiology results, the need for further work-up and treatment in the hospital. ED course: Patient is weak, dehydrated, hyponatremic and hypochloremic. CT head negative. Laceration along brow dermabonded and closed. Will admit for IV hydration and antibiotics.. 11/08 08:57 Order name: Flu; Complete Time: 11:20 11/08 08:57 Order name: SARS RAPID; Complete Time: 11:20 11/08 08:57 Order name: CBC with Diff; Complete Time: 11:20 rn 11/08 08:57 Order name: Basic Metabolic Panel rn 11/08 08:57 Order name: Protime (+inr); Complete Time: 11:20 11/08 08:57 Order name: Ptt, Activated; Complete Time: 11:20 rn 11/08 08:57 Order name: CMP; Complete Time: 11:20 rn 11/08 08:57 Order name: Lipase; Complete Time: 11:20 rn 11/08 08:57 Order name: Blood Culture Adult (2) rn 11/08 08:57 Order name: Lactate w/ 2H reflex if indic.; Complete Time: 11:20 rn 11/08 08:57 Order name: Urinalysis w/ reflexes rn 11/08 13:19 Order name: Urine Drug Screen EDDE 11/08 13:23 Order name: CBC with Automated Diff EDDE 11/08 13:23 Order name: CBC with Automated Diff EDMS 11/08 13:23 Order name: Comprehensive Metabolic Panel EDMS 11/08 13:23 Order name: Comprehensive Metabolic Panel EDMS 11/08 13:23 Order name: Liver (Hepatic) Function EDMS 11/08 13:23 Order name: Liver (Hepatic) Function EDMS 11/08 13:23 Order name: Protime (+INR) EDMS 11/08 13:23 Order name: Protime (+INR) EDMS 11/08 13:23 Order name: PTT, Activated Partial Thromb EDMS 11/08 13:23 Order name: PTT, Activated Partial Thromb EDMS 11/08 13:26 Order name: Cortisol EDMS 11/08 13:26 Order name: Cortisol EDMS 11/08 13:26 Order name: T4 Free EDMS 11/08 13:26 Order name: T4 Free EDMS 11/08 13:26 Order name: Thyroid Stimulating Hormone EDMS 11/08 13:26 Order name: Thyroid Stimulating Hormone EDMS 11/08 13:27 Order name: Osmolality, Serum EDMS 11/08 13:27 Order name: Osmolality, Urine EDMS 11/08 08:57 Order name: CT Head Brain wo Cont; Complete Time: 11:20 rn 11/08 08:57 Order name: CT Abd/Pelvis - IV Contrast Only; Complete Time: 11:20 rn 11/08 08:57 Order name: XRAY Chest (1 view); Complete Time: 11:20 rn 11/08 13:26 Order name: Thorax W/ Con EDMS 11/08 13:26 Order name: Thorax W/ Con EDMS 11/08 08:57 Order name: EKG; Complete Time: 08:58 rn 11/08 08:57 Order name: IV Start; Complete Time: 09:33 rn 11/08 08:57 Order name: Labs collected and sent; Complete Time: 09:32 rn 11/08 08:57 Order name: O2 Sat Monitoring; Complete Time: 09:32 rn 11/08 08:57 Order name: Cardiac monitoring; Complete Time: 09:33 rn 11/08 08:57 Order name: Accucheck; Complete Time: 10:19 rn 11/08 08:57 Order name: EKG - Nurse/Tech; Complete Time: 09:17 rn 11/08 08:57 Order name: IV Saline Lock - Large Bore; Complete Time: 09:31 rn 11/08 08:57 Order name: O2 Per Protocol; Complete Time: : rn 11/08 08:57 Order name: Vital Signs; Complete Time: : rn EC: Rate is 75 beats/min. Rhythm is regular. QRS [place] is Normal. [place] interval is normal. QRS rn interval is normal. QT interval is prolonged at 480 msec. No Q waves. T waves are Normal. No ST changes noted. Clinical impression: NSR w/ Non-specific ST/T Changes. Interpreted by me. Reviewed by me. Administered Medications: 12:12 Drug: NS 0.9% IV 1000 ml IV at 1000 ml once Route: IV; Rate: 1000 ml; Site: right nj1 antecubital; 12:12 Drug: Lisinopril PO 20 mg PO once Route: PO; nj1 12:20 Drug: Ciprofloxacin IVPB 400 mg 200 ml IVPB once over 60 mins Volume: 200 ml; Route: nj1 IVPB; Infused Over: 60 mins; Site: right antecubital; 12:20 Drug: metroNIDAZOLE IVPB 500 mg 100 ml IVPB at 200 ml/hr once over 30 mins Volume: 100 nj1 ml; Route: IVPB; Rate: 200 ml/hr; Infused Over: 30 mins; Site: right antecubital; 12:58 Follow up: Response: No adverse reaction; IV Status: Completed infusion; IV Intake: nj1 100ml Disposition Summary: 11/08/23 12:13 Hospitalization Ordered Notes: Hospitalization Status: Observation rn Provider: Ale Blunt rn [facility] rn Condition: Stable rn Problem: new rn Symptoms: have improved rn Bed/Room Type: Standard rn Room Assignment: 213(11/08/23 13:29) bd Diagnosis - Infectious gastroenteritis and colitis, unspecified rn - Dehydration rn - Muscle weakness (generalized) rn - Unspecified injury of head, initial encounter rn Forms: - Medication Reconciliation Form rn - SBAR form rn - Leadership Thank You Letter rn Signatures: Dispatcher [employer] Katie Seth Roman, MD MD rn Lewis, Lynsay RN RN ll1 Azalea Daigle RN RN nj1 Corrections: (The following items were deleted from the chart) 13:29 12:13 rn bd
[2023-11-08] MEDS ORDERED: ONDANSETRON 4 MG/2 ML VIAL IV PRN (13:17)
[2023-11-08] MEDS ORDERED: ACETAMINOPHEN 500 MG TAB PO PRN ×2 (13:17→14:13)
[2023-11-08] MEDS ORDERED: SODIUM CHLORIDE 0.9% 10ML INJ IV PRN (13:17)
--- NOTE | 2023-11-08 13:23 | P.HP ---
Certification for Inpatient Patient admitted to: Observation With expected LOS: <2 Midnights Patient will require the following post-hospital care: None Practitioner: I am a practitioner with admitting privileges, knowledge of patient current condition, hospital course, and medical plan of care. Services: Services provided to patient in accordance with Admission requirements found in Title 42 Section 412.3 of the Code of Federal Regulations <Ale Blunt - Last Filed: 11/08/23 13:21> Patient admitted to: Inpatient With expected LOS: <2 Midnights <Roberta Poole - Last Filed: 11/09/23 07:27> Patient History Date of Service: 11/08/23 Reason for admission: Abdominal pain History of Present Illness: Patient is a 62yo female - Past Medical/Surgical History -: Tobacco abuse Past Surgical History: Patient denies surgical history - Family History Father Family History: Reviewed- Non-Contributory - Social History Smoking Status: Never smoker <Ale Blunt - Last Filed: 11/08/23 13:21> History of Present Illness: 62-year-old female with a past medical history of COPD presents to the emergency room with abdominal pain that is diffuse. She denies abdominal pain pain radiation. She reports associated constipation with last BM 3 days ago. She reports history of COPD, reports shortness of breath was worse over the last 24 hours. She denies rectal bleeding, hematuria, vomiting blood, she report recent fall reports muscle aches, nonproductive cough. Plan to admit for gastroenteritis, dehydration, fall, with unspecified head injury,. She was treated with a liter of normal saline, ciprofloxacin IV 400, Flagyl 500 IV piggyback x 1, EKG75 beats/min. Rhythm is regular. QRS [place] is Normal. [place] interval is normal. QRS rn interval is normal. QT interval is prolonged at 480 msec. No Q waves. T waves are Normal. No ST changes noted. Clinical impression: NSR w/ Non-specific ST/T Changes. CT of the abdomen pelvis IMPRESSION: Small bowel mild caliber prominence and segments of fluid opacification, may suggest mild enteritis or diarrheal state. Distal stomach and proximal duodenal wall thickening, suggestive of gastritis and duodenitis. Head CT no acute abnormalities laboratory evaluation leukocytosis WBC 16.20, hyponatremia 128 transaminitis AST 49 UA positive for cocaine, positive for marijuana use - Past Medical/Surgical History -: Cocaine use -: Marijuana use -: COPD - Social History Smoking Status: Current every day smoker Smoking therapy provided: Yes Alcohol use: Yes Place of Residence: Home <Roberta Poole - Last Filed: 11/09/23 07:27> Allergies No Known Allergies Allergy (Unverified 11/08/23 15:03) Review of Systems 10-point ROS is otherwise unremarkable <Ale Blunt - Last Filed: 11/08/23 13:21> per HPI <Reuben Pooley - Last Filed: 11/09/23 07:27> Physical Examination - Vital Signs Temperature: 98 F - Physical Exam General: Alert, In no apparent distress, Oriented x3 HEENT: Atraumatic, Normocephalic Neck: Supple, 2+ carotid pulse no bruit, JVD not distended, No Thyromegaly Respiratory: Clear to auscultation bilaterally, Normal air movement Cardiovascular: Regular rate/rhythm, Normal S1 S2 Gastrointestinal: Normal bowel sounds, Soft and benign, Non-distended Musculoskeletal: No clubbing Integumentary: No rashes - Studies Laboratory Data (last 24 hrs) 11/08/23 11/08/23 11/08/23 09:10 09:10 09:10 WBC 16.20 H Hgb 17.3 H Hct 49.1 H Plt Count 417 H PT 10.7 INR 0.97 APTT 30.0 Sodium 128 L Potassium 3.7 BUN 47 H Creatinine 1.28 H Glucose 129 H Total Bilirubin 0.6 AST 49 H ALT 32 Alkaline Phosphatase 83 Lipase 38 Microbiology Data (last 24 hrs): 11/08/23 09:13 Nasopharnyx Influenza Type A Antigen Screen - Final 11/08/23 09:13 Nasopharnyx Influenza Type B Antigen Screen - Final <MerleneMadanmacho Ward - Last Filed: 11/08/23 13:21> - Physical Exam General: Alert, In no apparent distress, Oriented x3 HEENT: Atraumatic, Normocephalic Neck: Supple, 2+ carotid pulse no bruit, JVD not distended Cardiovascular: Regular rate/rhythm, Normal S1 S2 Gastrointestinal: Normal bowel sounds, Other (Diarrhea), Hyperactive, Tenderness Musculoskeletal: No clubbing Integumentary: No rashes External genitalia: No edema - Studies Laboratory Data (last 24 hrs) 11/08/23 11/08/23 11/08/23 09:10 09:10 09:10 WBC 16.20 H Hgb 17.3 H Hct 49.1 H Plt Count 417 H PT 10.7 INR 0.97 APTT 30.0 Sodium 128 L Potassium 3.7 BUN 47 H Creatinine 1.28 H Glucose 129 H Total Bilirubin 0.6 AST 49 H ALT 32 Alkaline Phosphatase 83 Lipase 38 Microbiology Data (last 24 hrs): 11/08/23 09:13 Nasopharnyx Influenza Type A Antigen Screen - Final 11/08/23 09:13 Nasopharnyx Influenza Type B Antigen Screen - Final <Roberta Poole - Last Filed: 11/09/23 07:27> Assessment & Plan - Problems (Diagnosis) (1) Abdominal pain Current Visit: Yes Status: Acute - Advance Directives Does patient have a Living Will: No Does patient have a Durable POA for Healthcare: No <Ale Blunt - Last Filed: 11/08/23 13:21> - Plan Assessment plan Viral gastroenteritis Abdominal pain Constipation BM 3 days ago. IV fluids IV analgesics normal saline, ciprofloxacin IV 400, Flagyl 500 IV EKG75 beats/min. Rhythm is regular. QRS [place] is Normal. NM interval is normal. QRS rn interval is normal. QT interval is prolonged at 480 msec. No Q waves. T waves are Normal. No ST changes noted. Clinical impression: NSR w/ Non-specific ST/T Changes. CT of the abdomen pelvis IMPRESSION: Small bowel mild caliber prominence and segments of fluid opacification, may suggest mild enteritis or diarrheal state. Distal stomach and proximal duodenal wall thickening, suggestive of gastritis and duodenitis. Head CT no acute abnormalities laboratory evaluation leukocytosis WBC 16.20, hyponatremia Dehydration Sodium 128, repeat 134 IV fluids transaminitis AST 49 Hypertension uncontrolled P.o. hydralazine due to cocaine abuse Fall Unspecified head injury Fall precautions, Polysubstance abuse UA positive for cocaine, positive for marijuana use Educate on substance cessation COPD Dyspnea CT of the chest with contrast ordered Xopenex O2 2 L 2% Full code DVT Diet regular Discharge Plan: Home - Code Status/Comfort Care Code Status: Full Code Critical Care: No Time Spent Managing PTS Care (In Minutes): 55 <Roberta Poole - Last Filed: 11/09/23 07:27>
[2023-11-08] MEDS: NA CHLORIDE 0.9% 1,000 ML IV SCH (15:09)
[2023-11-08 15:32] VITALS: BMI 24.7
[2023-11-08 17:01] LABS: Urine Bacteria None Seen /HPF (<20); Urine Bilirubin NEGATIVE (Negative); Urine Blood 2+ (Negative); Urine Clarity Clear (Clear); Urine Color Light-Yellow (Yellow); Urine Glucose 3+ (Negative); Urine Protein 1+ (Negative); Urine Urobilinogen Normal (Normal); Urine pH 6.5 (5.0-7.0)
[2023-11-08 17:04] LABS: Specific Gravity > 1.030 (1.005-1.030)
[2023-11-08] MEDS: PANTOPRAZOLE 40 MG INJ IVP SCH (20:26)
[2023-11-08] MEDS: MORPHINE 2 MG/ML SYR IV PRN (20:26)
[2023-11-08 20:34] LABS: Barbiturates NEGATIVE (NEGATIVE); Benzodiazepines NEGATIVE (NEGATIVE); Cocaine POSITIVE (NEGATIVE); METHAMPHETAM NEGATIVE (NEGATIVE); Methadone NEGATIVE (NEGATIVE); Opiates NEGATIVE (NEGATIVE); Phencyclidine NEGATIVE (NEGATIVE); THC Cannibis POSITIVE (NEGATIVE)
[2023-11-08 23:24] VITALS: O2SAT 97
[2023-11-09] MEDS: MORPHINE 2 MG/ML SYR IV PRN ×2 (01:02→11:22)
[2023-11-09] MEDS: NA CHLORIDE 0.9% 1,000 ML IV SCH (01:02)
[2023-11-09 06:23] LABS: Absolute Lymphocytes (CBC) 1.1 K/uL (0.7-4.9); Hematocrit 36.8 % (36.0-45.0); Lymphocytes % 11.9 % (15.3-44.8); MCV 91.5 fL (80-100); MPV 7.6 fL (7.6-11.3); Platelets 277 thou/uL (152-406); RBC Red Blood Cell Count 4.02 M/uL (3.86-4.86)
[2023-11-09 06:37] LABS: Protime INR 1.04
[2023-11-09 06:50] LABS: Albumin 2.7 g/dL (3.4-5.0); Bilirubin Direct 0.1 mg/dL (0-0.2); Bilirubin Indirect, Calculated 0.3 mg/dL (0.2-0.8); Bilirubin Total 0.4 mg/dL (0.2-1.0); Potassium 3.4 mEq/L (3.5-5.1); Thyroid Stimulating Hormone 1.61 uIU/mL (0.358-3.740)
--- NOTE | 2023-11-09 07:12 | P.PN ---
Subjective Date of Service: 11/09/23 Chief Complaint: Abdominal pain - Physical Exam General: Alert, In no apparent distress, Oriented x3 HEENT: Atraumatic, Normocephalic Neck: Supple, 2+ carotid pulse no bruit, JVD not distended, No Thyromegaly Respiratory: Clear to auscultation bilaterally, Normal air movement Cardiovascular: Regular rate/rhythm, Normal S1 S2 Gastrointestinal: Normal bowel sounds, Soft and benign, Non-distended Musculoskeletal: No clubbing Integumentary: No rashes Review of Systems per HPI Physical Examination - Vital Signs Temperature: 97.7 F Blood Pressure: 156/83 Pulse: 66 Respirations: 17 Pulse Ox (%): 98 - Studies Laboratory Data (last 24 hrs) 11/08/23 11/08/23 11/08/23 09:10 09:10 09:10 WBC 16.20 H Hgb 17.3 H Hct 49.1 H Plt Count 417 H PT 10.7 INR 0.97 APTT 30.0 Sodium 128 L Potassium 3.7 BUN 47 H Creatinine 1.28 H Glucose 129 H Total Bilirubin 0.6 AST 49 H ALT 32 Alkaline Phosphatase 83 Lipase 38 Microbiology Data (last 24 hrs): 11/08/23 09:13 Nasopharnyx Influenza Type A Antigen Screen - Final 11/08/23 09:13 Nasopharnyx Influenza Type B Antigen Screen - Final Assessment And Plan - Plan Assessment plan Viral gastroenteritis Abdominal pain Constipation BM 3 days ago. IV fluids IV analgesics normal saline, ciprofloxacin IV 400, Flagyl 500 IV EKG75 beats/min. Rhythm is regular. QRS [place] is Normal. [place] interval is normal. QRS rn interval is normal. QT interval is prolonged at 480 msec. No Q waves. T waves are Normal. No ST changes noted. Clinical impression: NSR w/ Non-specific ST/T Changes. CT of the abdomen pelvis IMPRESSION: Small bowel mild caliber prominence and segments of fluid opacification, may suggest mild enteritis or diarrheal state. Distal stomach and proximal duodenal wall thickening, suggestive of gastritis and duodenitis. Head CT no acute abnormalities laboratory evaluation leukocytosis WBC 16.20, hyponatremia Dehydration Sodium 128, repeat 134 IV fluids transaminitis AST 49 Hypertension uncontrolled P.o. hydralazine due to cocaine abuse Fall Unspecified head injury Fall precautions, Polysubstance abuse UA positive for cocaine, positive for marijuana use Educate on substance cessation COPD Dyspnea CT of the chest with contrast ordered Xopenex O2 2 L 2% Full code DVT Diet regular Discharge Plan: Home Discharge Plan: Home Plan to discharge in: 48 Hours - Code Status/Comfort Care Code Status: Full Code Critical Care: No Time Spent Managing PTS Care (In Minutes): 35
[2023-11-09] MEDS ORDERED: SENOSIDES 8.6 MG TAB PO PRN (07:23)
[2023-11-09] MEDS ORDERED: METRONIDAZOLE 500mg IVPB 500 MG/100 ML BAG IV SCH (07:23)
[2023-11-09] MEDS: LEVALBUTEROL 0.63 MG/3 ML NEB NEB SCH ×2 (08:23→13:00)
[2023-11-09] MEDS: PANTOPRAZOLE 40 MG INJ IVP SCH (08:42)
--- NOTE | 2023-11-09 08:55 | P.DS ---
Admission Date: 11/08/23 Discharge Date: 11/09/23 Disposition: ROUTINE DISCHARGE Discharge Condition: FAIR Reason for Admission: Abdominal pain Brief History of Present Illness: 62-year-old female with a past medical history of COPD presents to the emergency room with abdominal pain that is diffuse. She denies abdominal pain pain radiation. She reports associated constipation with last BM 3 days ago. She reports history of COPD, reports shortness of breath was worse over the last 24 hours. She denies rectal bleeding, hematuria, vomiting blood, she report recent fall reports muscle aches, nonproductive cough. Plan to admit for gastroenteritis, dehydration, fall, with unspecified head injury,. She was treated with a liter of normal saline, ciprofloxacin IV 400, Flagyl 500 IV piggyback x 1, EKG75 beats/min. Rhythm is regular. QRS [place] is Normal. [place] interval is normal. QRS rn interval is normal. QT interval is prolonged at 480 msec. No Q waves. T waves are Normal. No ST changes noted. Clinical impression: NSR w/ Non-specific ST/T Changes. CT of the abdomen pelvis IMPRESSION: Small bowel mild caliber prominence and segments of fluid opacification, may suggest mild enteritis or diarrheal state. Distal stomach and proximal duodenal wall thickening, suggestive of gastritis and duodenitis. Head CT no acute abnormalities laboratory evaluation leukocytosis WBC 16.20, hyponatremia 128 transaminitis AST 49 UA positive for cocaine, positive for marijuana use - Physical Exam General: Alert, In no apparent distress, Oriented x3 HEENT: Atraumatic, Normocephalic Neck: Supple, 2+ carotid pulse no bruit, JVD not distended, No Thyromegaly Respiratory: Clear to auscultation bilaterally, Normal air movement Cardiovascular: Regular rate/rhythm, Normal S1 S2 Gastrointestinal: Normal bowel sounds, Soft and benign, Non-distended Musculoskeletal: No clubbing Integumentary: No rashes Hospital Course: 62-year-old patient presented with abdominal pain. Was noted to have viral gastroenteritis, dehydration, uncontrolled hypertension, fall. Was treated with IV fluids, Cipro, Flagyl, as needed antihypertensive. Condition improved with IV antibiotics, as needed antihypertensives. Stable for discharge with follow-up a primary care appointment. Incidental findings polysubstance use, urine drug screen positive for opioids, marijuana. PROBLEM: Gastroenteritis Polysubstance use Uncontrolled hypertension Education recommend Polysubstance use cessation, discuss treatment options with primary care physician for opioid abuse recommendations GOAL: Clear understanding of disease process INSTRUCTIONS: Physician Discharge Instructions: -DC IV and DC home -Follow-up with PCP in 1 to 2 weeks -Please call Dr. Blunt at [phone] if any questions regarding hospital stay -Please call nursing station at [phone] if any nursing or medication questions -Return to the emergency room if symptoms worsen Diet: ADA, low sodium Activity: Fall precautions DME: Date Ordered: Name of Company: [employer] Services Needed: None Date or Referral: IMMUNIZATION Influenza Vaccine Indicated: Influenza Vaccine Given: Date Given: Pneumonia Vaccine Indicated: Pneumonia Vaccine Given: Date Given: Vital Signs/Physical Exam: Temp Pulse Resp BP Pulse Ox 97.7 F 63 16 122/71 97 11/09/23 08:00 11/09/23 08:00 11/09/23 08:00 11/09/23 08:00 11/09/23 08:00 Laboratory Data at Discharge: WBC 9.30 thou/uL (4.3-10.9) 11/09/23 05:27 Hgb 13.1 g/dL (12.0-15.0) D 11/09/23 05:27 Hct 36.8 % (36.0-45.0) 11/09/23 05:27 Plt Count 277 thou/uL (152-406) D 11/09/23 05:27 PT 11.4 SECONDS (9.5-12.5) 11/09/23 05:27 INR 1.04 11/09/23 05:27 APTT 26.3 SECONDS (24.3-36.9) 11/09/23 05:27 Sodium 134 mEq/L (136-145) L D 11/09/23 05:27 Potassium 3.4 mEq/L (3.5-5.1) L 11/09/23 05:27 BUN 29 mg/dL (7-18) H 11/09/23 05:27 Creatinine 0.94 mg/dL (0.55-1.02) 11/09/23 05:27 Glucose 93 mg/dL (74-106) 11/09/23 05:27 Total Bilirubin 0.4 mg/dL (0.2-1.0) 11/09/23 05:27 AST 42 U/L (15-37) H 11/09/23 05:27 ALT 27 U/L (13-56) 11/09/23 05:27 Alkaline Phosphatase 57 U/L (45-117) D 11/09/23 05:27 Lipase 38 U/L (13-75) 11/08/23 09:10 Followup: NONE,NONE [Primary Care Provider] -
[2023-11-09] MEDS ORDERED: CIPROFLOXACIN 400mg IV 400 MG/200 ML BAG IV SCH (09:00)
--- NOTE | 2023-11-09 10:54 | RAD REPORT ---
EXAM DESCRIPTION: CT - Thorax W/ Con - 11/09/2023 9:04 am CLINICAL HISTORY: Cough. Hyponatremia COMPARISON: November 08, 2023 chest x-ray TECHNIQUE: Computed axial tomography of the chest was obtained. 100 cc Isovue 300 was administered i ntravenously. All CT scans are performed using dose optimization technique as appropriate and may include automated exposure control or mA/KV adjustment according to patient size. FINDINGS: The lungs appear clear. Mild paraseptal emphysema. Lungs are moderately hyperaerated No mediastinal or hilar lymphadenopathy is seen. A pleural effusion is not present. A pericardial effusion is not seen. IMPRESSION: COPD No acute abnormality is displayed
[2023-11-09 14:13] VITALS: BP 144/78; TEMP 98
--- NOTE | 2023-11-10 13:30 | EKG ---
Test Date: 2023-11-08 Test Time: 09:10:27 Underliner: DEBBIE MEASUREMENT RESULTS: Intervals: Rate: 80 GA: 114 QRSD: 86 QT: 430 QTc: 495 [place]: P: 70 GA: 114 QRS: 86 T: 82 INTERPRETIVE STATEMENTS: Normal sinus rhythm Voltage criteria for left ventricular hypertrophy Prolonged QT Abnormal ECG Compared to ECG 02/04/2004 12:15:00 Prolonged QT interval now present ST (T wave) deviation no longer present Electronically Signed On 11-10-23 13:24:49 BANKING ANALYST by Pepito Maya
== END 2023-11-09 15:00 | disposition home or self-care (01) ==
LOC: ER 08:53 → INTOOBSV 14:14 → 2ND 14:14
PROVIDERS: ADMIT Hospitalist; ATTEND Hospitalist
PROC: 0JQ10ZZ Repair Face Subcutaneous Tissue and Fascia, Open Approach (ICD-10-PCS; principal; 2023-11-09)
DX: A08.4 Viral intestinal infection, unspecified (principal); J44.9 Chronic obstructive pulmonary disease, unspecified; K59.00 Constipation, unspecified; E86.0 Dehydration; S01.111A Laceration without foreign body of right eyelid and periocular area, initial encounter; W18.30XA Fall on same level, unspecified, initial encounter; Y93.9 Activity, unspecified; Y92.019 Unspecified place in single-family (private) house as the place of occurrence of the external cause; R53.1 Weakness; F14.90 Cocaine use, unspecified, uncomplicated; F12.90 Cannabis use, unspecified, uncomplicated; F17.210 Nicotine dependence, cigarettes, uncomplicated; E87.1 Hypo-osmolality and hyponatremia; R74.01 Elevation of levels of liver transaminase levels; I10 Essential (primary) hypertension; R06.00 Dyspnea, unspecified; Z11.52 Encounter for screening for COVID-19
CPT/HCPCS: 96365; 93005; 87040 ×2; 85025 ×2; 81001; 36415 ×2; 87205 ×2; 85610 ×2; 83605; 85730 ×2; 84443; 87077; 87186; 82248; 84439; 83690; 80053 ×2; 82533; 80307; 83930; 83935; 87804 ×2; 70450; 71260; 74177; 71045; 94640; 96375; 99285; 87811; 12011; Q9967 ×2; C9113 ×2; J2270 ×3; J7614; J0744 ×2; J7030 ×3; G0378 ×3